=== PATIENT | female | born 1995 | race Caucasian/White ===

== ENCOUNTER 2017-09-12 12:50 | Day surgery (SDC) | payer OTHER ==
[2017-09-12 13:40] VITALS: BMI 30.9
[2017-09-12 13:41] VITALS: BP 112/68; TEMP 97.8
[2017-09-12] MEDS ORDERED: Ondansetron HCl/PF 4 MG/2 ML Vial IVP PRN (14:28)
[2017-09-12] MEDS ORDERED: Lactated Ringer's 1,000 ML IV SCH ×2 (14:30)
--- NOTE | 2017-09-12 14:32 | PDOC.LDHP ---
Labor and Delivery H&P Chief complaint: other (N/V) HPI: This 22 yo F at 32 wk per LMP comes in complaining of intractable nausea/ vomiting which started last night. She states her 2 children have been sick and she was cleaning up their vomit. She denies abdominal pain. States she cannot keep fluids down. Denies fevers, chill, or sweats. Has had diarrhea, denies blood. Denies contractions, some inna-conte, feels baby moving, no vaginal discharge or bleeding. She has not had any care due to reported insurance issues. She states that CPS is involved for "other issues" in her home. ROS General: no fever, chills, or sweats Neuro: mild headache, no LOC, no weakness HEENT: no change in vision, no hearing issues, no runny nose, no ear pain, No sore throat CV: no chest pain, No palpitations Respiratory: no Cough, no wheezing, no shortness of breath GI: see hpi : no Dysuria, no increased frequency, no hematuria Ms: mild myalgias, no arthralgias Skin: no Rashes, bruising, or petechiae Current gestational age (weeks): 32 Dating criteria: last menstrual period Grav: 3 Para: 2 OB History Details: No care. 1st child induced at 42 wks w/o complications. 2nd child 40 wks w/o complications. Current complications: other (no care) Past Medical History: Denies any medical conditions Current medications: pre- vitamins Previous surgical history: none Social history: other (denies tobacco or alcohol use. Admits to using marijuana early in the .) - Physical Exam Abnormal vital signs: tachycardic in 120s, will give fluids General: NAD Heart: RRR Lungs: CTAB Abdomen: gravid (no tenderness to palpation) Extremeties: no edema FHT: category 1 (no accels, baseline 150, no contractions, no decels, good variability) - OB Labs HIV: negative HEPSAg: negative - Assessment this is stable 22 yo F with likely gastroenteritis. We will send her home with Judy to get her through to her appointment with clinic on Saturday. She is tolerating PO intake at time of discharge. #Di/Di Twins - patient found to have di/di twins on US - twins are 28wks by US, they should be 32 weeks by LMP - due to no prior , it is unsure whether this is IUGR or inaccurate LMP -the twins are discordant by 10-15% - Initial OB labs were completed - Appointment made for 914 on Saturday morning at clinic - Plan -: #Di/di twins w/ no care -Completed initial OB labs -Complete OB US- showing di/di twins -see assessment/report for results #IUGR? -twins discordant size -they are 28 wks by US, 32 wks by LMP, no previous data -Needs complete US in 2 weeks to track growth -f/u on results of US doppler -Weekly BPP/Bi-weekly NSTs until more complete picture obtained -MFM consult # Nausea/vomiting 2L LR 4mg IV Zofran PO zofran for home <Peter Dhillon - Last Filed: 09/12/17 17:49> <Isauro Oh - Last Filed: 09/12/17 23:39> Allergies/Adverse Reactions: Allergies Allergy/AdvReac Type Severity Reaction Status Date / Time No Known Drug Allergies Allergy Verified 09/12/17 13:38 Attending Addendum - Attending Addendum Date/Time: 09/12/17 5576 I personally evaluated the patient and discussed the management with Dr. Dhillon I agree with the History, Examination, Assessment and Plan documented above with any addition or exceptions noted below. addendum. U/s Showed twin gestation, diamniotic girls 15% discordant and measuring 3-4wks smaller than due date by lmp. iugr? vs poor dating. will get dopplar studies before discharging home. Dopplars appropriate for gestational age. Pt to discharge home. Has appt with [facility] for next week. Plans in place for testing and repeat u.s for growth to verify apropriate growth velocity vs iugr. . 3 <Isauro Oh - Last Filed: 09/12/17 23:39>
[2017-09-12 15:05] LABS: #Lymphocytes 0.8 thou/uL (1.20-3.40); #Monocytes 0.3 thou/uL (0.11-0.59); #Neutrophils 12.6 thou/uL (1.40-6.50); %Eosinophils 0.1 % (0.0-10.0); %Lymphocytes 5.8 % (21.0-51.0); %Monocytes 2.2 % (0.0-10.0); %Neutrophils 91.8 % (42.0-75.0); Hemoglobin 12.1 g/dL (12.0-16.0); Mean Corpuscular HGB CONC 33.7 g/dL (32.0-36.0); Mean Corpuscular Hemoglobin 29.3 pg (27.0-31.0); Mean Corpuscular Volume 87.1 fl (81.0-99.0); Mean Platelet Volume 7.9 fL (7.4-10.4); Platelet Count 284 thou/uL (130-400); RBC Distribution Width 12.2 % (11.5-14.5); Red Blood Cell (RBC) Count 4.11 mill/uL (4.20-5.40); White Blood Cell (WBC) Count 13.7 thou/uL (4.8-10.8)
[2017-09-12 15:27] LABS: ALT (SGPT) 13 U/L (8-55); AST (SGOT) 16 U/L (5-34); Albumin 3.7 g/dL (3.5-5.0); Alkaline Phosphatase 216 U/L (40-150); Anion Gap 15 mmol/L (10-20); BUN (Urea Nitrogen) 10 mg/dL (7.0-18.7); Bilirubin, Total 0.4 mg/dL (0.2-1.2); Calc. Creatinine Clearance 170 mL/min (70-130); Calcium 8.8 mg/dL (7.8-10.44); Carbon Dioxide 20 mmol/L (22-29); Chloride 106 mmol/L (98-107); Estimated GFR-MDRD Greater than 90; Globulin 3.9 g/dL (2.4-3.5); Glucose 76 mg/dL (70-105); Potassium 3.9 mmol/L (3.5-5.1); Protein, Total 7.6 g/dL (6.0-8.3); Sodium 137 mmol/L (136-145)
[2017-09-12 15:56] LABS: Syphilis Antibody Nonreactive (Nonreactive); Syphilis Antibody Index 0.04 S/CO (<1.00 Non-Reactive)
[2017-09-12 16:05] LABS: HBSAg Index 0.18 S/CO (0-0.99); HIV (1/2) Antibody/Antigen Non-Reactive (NonReactive); HIV 1/2 INDEX 0.16 S/CO (<1.00); Hep B Surf Ag Non-Reactive S/CO (NonReactive)
[2017-09-12 16:31] LABS: Bilirubin Negative (Negative); Blood, Urine Negative (Negative); Clarity CLOUDY (Clear); Glucose, Urine (Dipstick) Negative (Negative); Leukocyte Small (Negative); Nitrite Negative (Negative); Protein, Urine (Dipstick) 100 mg/dL (Neg-Trace); Specific Gravity, Urine 1.022 (1.002-1.036); Urobilinogen 0.2 mg/dL (0.2-1.0)
[2017-09-12 16:34] LABS: Bacteria/HPF 3+ HPF (None Seen); Hyaline Casts/LPF 4-6 HYALINE CAST LPF (0-3 Hyaline); Pathc Cast-AUWi Flag 0.54 (0-2.49); RBC/HPF 0-3 HPF (0-3)
[2017-09-12 16:40] LABS: Amphetamine Not Detected (NotDetected); Barbiturates Screen Not Detected (NotDetected); Benzodiazepine Screen Not Detected (NotDetected); Cocaine Metabolite Screen Not Detected (NotDetected); Medtox Control Line Valid? VALID (VALID); Medtox Reader # READER 4; Methadone Not Detected (NotDetected); Methamphetamine Not Detected (NotDetected); Opiate Screen Not Detected (NotDetected); Oxycodone Screen Not Detected (NotDetected); Phencyclidine (PCP) Not Detected (NotDetected); THC/Cannabinoid Screen Not Detected (NotDetected); Tricyclic Screen Not Detected (NotDetected)
[2017-09-12 16:43] LABS: Renal Epithelial None Seen HPF (0-3); Transitional Epithelial 0-3 HPF (0-3)
--- NOTE | 2017-09-12 17:09 | ULT ---
OBSTETRICAL ULTRASOUND 09/12/17 INDICATION: History of no care; evaluation of size and dates. COMPARISON: None. FINDINGS: There is a twin twin diamniotic, dichorionic intrauterine gestation. Twin A is on the maternal left and is in vertex presentation. The placenta is anterior in location wi thout evidence of previa. The visualized cerebellum, four chamber heart, stomach, kidneys, cord insertion, bladder, lips and no se appear within normal limits. Three vessel cord was demonstrated. The spine, lateral ventricles, ci sterna magna were not well seen due to the twin twin as well as the advanced gestational ag e. weight was 1212 grams plus/minus 179 grams (2 lb. 11 oz, plus/minus 6 oz). The average gestational age based on the biometrics obtained was 28 weeks and 4 days with estim ated due date of 12/01/17. The clinical age was 32 weeks and 2 days with estimated due date of 11/05/17 . The MARINA for twin A was 12.2. heart rate was noted at 141 beats per minute. Fetus B is seen to the maternal right and is in breech presentation. The placenta is anterior in loca tion without evidence of previa. The cardiac activity is noted at 152 beats per minute. The weight based on biometrics is 1426 grams plus/minus 211 grams (3 lb. 2 oz plus/minus 7 oz.). The average gestational age based on biometrics is 29 weeks and 6 days with estimated d ue date of 11/22/17. Clinical age is 32 weeks and 2 days with estimated due date of 11/05/17. MARINA was 9.9 cm. The visualized heart, stomach, kidneys, cord insertion, nose and lips, three vessel cord, bladder, and diaphragm appear within normal limits. The heart was not well seen. IMPRESSION: 1. Diamniotic, dichorionic twin twin . Size and dates as above. 2. There are limitations in the survey due to advanced gestational age and the twin twin p regnancy. 3. There is limited visualization of the head and spine on twin B. There was limited visua lization of portions of the head and spine with twin A. Short term follow up in one to two week s for possible completion of the survey would be recommended. POS: [facility]
--- NOTE | 2017-09-12 19:40 | ULT ---
UMBILICAL ARTERIAL DOPPLER EXAM 09/12/17 COMPARISON: None. HISTORY: 22-year-old female with twin . Evaluate umbilical artery of twin A. TECHNIQUE: Multiplanar pemberton scale assessment of the umbilical artery obtained. Color flow and spectral analysis was performed as well. FINDINGS: The umbilical artery near the placenta demonstrates a peak systolic velocity of 78 cm/s and a systol ic/diastolic ratio of 2.8. The umbilical artery near the insertion demonstrates a peak systolic velocity of 75.2 cm/s and a systolic/diastolic ratio of 3.6. The mid portion of the umbilical artery demonstrates a peak systolic velocity of 48 cm/s and a systolic/diastolic ratio of 2.8. IMPRESSION: Systolic/diastolic ratio of the umbilical artery measures from 2.8 to 3.6 with peak systolic velocity ranging from 48 cm/s to 78 cm/s. At a reported gestational age of 28 weeks for twin A, systolic/diastolic ratio is between the 50th pe rcentile (3.0) and the 95th percentile (4.3). POS: MEET
--- NOTE | 2017-09-12 19:44 | ULT ---
UMBILICAL ARTERIAL DOPPLER ULTRASOUND 09/12/17 HISTORY: 22-year-old female with twin gestation. Assess umbilical artery doppler of fetus B. TECHNIQUE: Umbilical artery of twin B is assessed with color flow and spectral analysis. FINDINGS: The umbilical artery at the level of the placental insertion demonstrates a peak systolic velocity of 41 cm/s and a systolic/diastolic ratio of 2.3. At the insertion, umbilical arterial peak systo lic velocity is 113 cm/s and systolic/diastolic ratio is 3.1. Within the mid portion of the umbilical artery, peak systolic velocity is 89 cm/s and systolic/diastolic ratio is 2.9. IMPRESSION: Umbilical arterial doppler ultrasound as above, with peak systolic velocity ranging from 2.3 to 3.1. POS: MEET
[2017-09-12] MEDS ORDERED: Acetaminophen 500 MG TAB PO SCH (19:45)
--- NOTE | 2017-09-15 16:18 | PDOC.EVN ---
Event Note - Event Note Event Note: Reviewed results of urine culture. Called patient in macrobid per sensetivities. Patient understood and will pick them up today. no dysuria, so this may just be asymptomatic bactiuria, but that is treated in . Patient has new patient appointment for saturday morning at [facility].
[2017-09-17 21:10] LABS: Chlamydia by PCR Not Detected (NotDetected); GC by PCR Not Detected (NotDetected)
== END 2017-09-12 20:01 | disposition home or self-care (01) ==
LOC: L&D/OP 12:50
PROVIDERS: ATTEND Obstetrics & Gynecology
DX: O21.2 Late vomiting of pregnancy (principal); O30.042 Twin pregnancy, dichorionic/diamniotic, second trimester; Z3A.32 32 weeks gestation of pregnancy
CPT/HCPCS: 76810; 76815; 80053; 80306; 81003; 81015; 85025; 86762; 86780; 87077; 87086; 87186; 87340; 87389; 87491; 87591; 99285; A4353

== ENCOUNTER 2017-10-03 14:55 | Day surgery (SDC) | payer OTHER ==
[2017-10-03 15:57] VITALS: BMI 32.9
[2017-10-03] MEDS ORDERED: FLU VACC QS2017-18 36 mo. & older 0.5 ML SYRINGE IM ONE (17:00)
--- NOTE | 2017-10-03 17:18 | PRG ---
DATE OF SERVICE: 10/03/2017 LABOR AND DELIVERY PROGRESS NOTE HISTORY OF PRESENT ILLNESS: Chelsea Bonilla is a 22-year-old G3, P2 at 33 weeks and 3 days by a 29-week 6 day ultrasound with known dichorionic diamniotic twin gestation who presents from the Clinic for evaluation of mild range blood pressures. The patient was seen today in clinic with a blood pressure 147 /86. She was sent to Labor and Delivery for evaluation. The patient has a chronic history of migraines. She reports she did have a migraine yesterday that resolved. She denies any headaches today. She denies any right upper quadrant pain or increased swelling in her lower extremities, hands or face. The patient denies any history of preeclampsia. The patient reports good movement x2 and reports that she had a sonogram today at clinic noting cephalic presentation of both baby A and B. The patient is feeling movement, uncertain if she is having contractions. OBJECTIVE: VITAL SIGNS: Blood pressures are normotensive 110s/60s from multiple assessments. CARDIOVASCULAR: Regular rate. RESPIRATORY: Unlabored. ABDOMEN: Soft, gravid, nontender to palpation. EXTREMITIES: No edema. Negative Hom[place]'. FHTS: Baby A:140s, positive accelerations and no decelerations (category 1). Baby B is 130s, positive accelerations, no decelerations (category 1). Tocometer: only two contractions seen over the course of more than 30 minutes. ASSESSMENT: A 22-year-old G3, P2 at 33 weeks and 3 days with di-di twin gestation with reported mild range blood pressure in clinic with normotensive blood pressures on labor and delivery evaluation. PLAN: The patient's blood pressures have been normotensive. She denies any symptoms of preeclampsia. NST of both baby A and B are reassuring and reactive. Discharged home with followup at Clinic. Preeclampsia warning symptoms reviewed with the patient. Continue baby aspirin. MTDD
== END 2017-10-03 17:23 | disposition home or self-care (01) ==
LOC: L&D/OP 14:55
PROVIDERS: ATTEND Obstetrics & Gynecology
DX: O99.89 Other specified diseases and conditions complicating pregnancy, childbirth and the puerperium (principal); R03.0 Elevated blood-pressure reading, without diagnosis of hypertension; O99.353 Diseases of the nervous system complicating pregnancy, third trimester; G43.909 Migraine, unspecified, not intractable, without status migrainosus; O30.043 Twin pregnancy, dichorionic/diamniotic, third trimester; Z3A.33 33 weeks gestation of pregnancy; Z79.899 Other long term (current) drug therapy
CPT/HCPCS: 99282

== ENCOUNTER 2017-10-26 16:46 | Day surgery (SDC) | payer OTHER ==
[2017-10-26 17:31] VITALS: BMI 35.3
[2017-10-26 17:58] VITALS: BP 129/75; TEMP 97.9
[2017-10-26 18:03] LABS: Amnisure Test No Membranes Rupture (No Rupture)
[2017-10-26 18:04] LABS: Amnisure Internal Control QC ACCEPTABLE (ACCEPTABLE)
--- NOTE | 2017-10-26 18:25 | PDOC.LDHP ---
Labor and Delivery H&P Chief complaint: contractions, loss of fluid HPI: 22 y/o @ 36.4 WGA presents for increased frequency and intensity of ctx as well as concern for leaking of fluid. She reports that she was having a strong ctx and felt some leaking fluid. She reports good movement and denies vaginal bleeding or discharge. Current gestational age (weeks): 36 (4 days) Due date: 11/19/17 Grav: 3 Para: 2 OB History Details: Has had two at term with no complications. Current complications: di/di twins, other (Glucose intolerance, Anemia of ) Abnormal US findings: Yes (discordant growth ) Past Medical History: None Current medications: pre- vitamins, iron, other (aspirin) Previous surgical history: cholecystectomy, other (Elmer in R leg) Social history: none - Physical Exam Vital signs reviewed and normal: yes General: NAD Heart: RRR Lungs: CTAB Abdomen: gravid Extremeties: no edema FHT: category 1, variable decelerations [place] contractions every: 5 minutes - Vaginal Exam cm dilated: 4 Effacement: 75% Station: -2 - OB Labs Blood type: O RH: positive Antibody Screen: negative HIV: negative RPR: negative 1 hour GCT: positive 3 hour GTT: negative GBS: positive Rubella: immune - Assessment Late Pre-term Labor rule-out - Plan -: 1. Late Pre-Term R/O labor -Amnisure -Cervical check in 2 hours -Monitor with external monitors 2. Di/Di twins Discordant growth -Monitor 3. Anemia of 4. GBS positive -If in labor, then will start penicillin <Kristel Pinedo - Last Filed: 10/26/17 18:23> <Nicolás Balbuena - Last Filed: 10/27/17 09:08> Allergies/Adverse Reactions: Allergies Allergy/AdvReac Type Severity Reaction Status Date / Time No Known Drug Allergies Allergy Verified 09/12/17 13:38 Attending Addendum - Attending Addendum Date/Time: 10/27/17 0901 I personally evaluated the patient and discussed the management with Dr. Pinedo and Levi. I agree with and repeated the History, Examination, Assessment and Plan documented above with any addition or exceptions noted below. @ 36w4d by suboptimal dating followed by MFM for di/di twins with isolated growth restriction of twin A (9% last sono on 10/15) and 18% discordance with normal dopplers. She recently saw [facility] and, per her, they recommended induction at 37w0d. She comes in because of leaking. Intermittent contractions, nothing regular or painful. +FM. No bleeding or preE symptoms. FHT: Cat 1, mod richard, + accels, - decels x 2 [place]: initially ctx q5m, spaced out after 2 hours SVE: 4.5/50/-3 x 2 exams, bulging bag Sono: vertex/vertex twins, DVP 5.59 and 5.2 cm A/B respectively Amnisure negative A/P: Negative ROM contractions Advanced cervical dilation with no cervical change after 2 hours 1. Discussed with patient, she would like to go home. 2. Discharge with strict return to OBT precautions 3. Discussed delivery plan in detail 4. Scheduled induction morning 10/29, will confirm after getting records on Saturday from [facility] Discussed in detail with Dr. Carlin, who is proctoring and following this patient. <Nicolás Balbuena - Last Filed: 10/27/17 09:08>
== END 2017-10-26 19:45 | disposition home or self-care (01) ==
LOC: L&D/OP 16:46
PROVIDERS: ATTEND Emergency Medicine
DX: O47.03 False labor before 37 completed weeks of gestation, third trimester (principal); O30.043 Twin pregnancy, dichorionic/diamniotic, third trimester; O99.013 Anemia complicating pregnancy, third trimester; D64.9 Anemia, unspecified; O36.5930 Maternal care for other known or suspected poor fetal growth, third trimester, not applicable or unspecified; O99.820 Streptococcus B carrier state complicating pregnancy; Z3A.36 36 weeks gestation of pregnancy; Z79.82 Long term (current) use of aspirin; Z79.899 Other long term (current) drug therapy; Z98.890 Other specified postprocedural states
CPT/HCPCS: 84112

== ENCOUNTER 2017-10-29 05:30 | Inpatient (IN) | payer OTHER ==
[2017-10-29] MEDS: Lactated Ringer's 1,000 ML IV SCH ×3 (07:15→20:35)
[2017-10-29 07:36] VITALS: BMI 35.3
--- NOTE | 2017-10-29 07:53 | PDOC.LDHP ---
Addendum entered and electronically signed by Dontae Price MD 10/29/17 08: 51: Upper level addendum Discussed at length the risks and benefits of C section vs trial of labor. Gabriela twins with confirmed cephalic cephalic presentation today. Induction today at term because of poor growth of baby A. [facility] recommended induction today , but I do not have the US report available to know if baby A meets criteria for IUGR or is just smaller than Baby B. Discussed the risk of need for emergent C section if one or the other fetus' do not tolerate labor, if position change makes vaginal delivery too high risk or if there is placental abnormalities. She would like to proceed with trial of labor and attempted vaginal delivery. We will plan to do delivery under US guidance, in the operating room with patient ready for section if needed. We have placed type and cross match for this patient because of high risk and her anemia. Marianne Price Original Note: Labor and Delivery H&P Chief complaint: scheduled induction HPI: 22 yo @ 37.0 WGA presents for scheduled induction. Patient presented for care around 30 weeks gestation. She denies chest pain, sob, n/v/d, fevers, chills, or recent illness. She states she has not had any vaginal fluid leakage or bleeding. She does note infrequent, weak contractions. She has no other complaints this morning. Current gestational age (weeks): 37 Due date: 11/19/17 Current complications: di/di twins, other (glucose intolerance, anemia of ) Abnormal US findings: Yes (Discordant growth) Past Medical History: Anxiety and depression Current medications: pre-lacy vitamins, iron, other (Aspirin) Previous surgical history: cholecystectomy, none (Elmer placed in right leg after fracture) Social history: none - Physical Exam Vital signs reviewed and normal: yes General: NAD, resting, breathing through contractions Heart: RRR Lungs: CTAB Abdomen: gravid Extremeties: no edema FHT: category 1 (Baby B), category 2 (Baby A) - Vaginal Exam cm dilated: 4 (4.5) Effacement: 50% Station: -3 - OB Labs Blood type: O RH: positive Antibody Screen: negative HIV: negative RPR: negative HEPSAg: negative 1 hour GCT: positive 3 hour GTT: negative GBS: positive Urine drug screen: not done Rubella: immune - Assessment L&D Assessment: medically indicated induction 1. Term Intrauterine - Scheduled Pitocin induction - External monitors - Cervical checks q2h 2. Di/Di twins - Discordant growth - Monitoring 3. Anemia of - CBC ordered 4. GBS positive - Will initiate Prophylaxis Disposition: Stable, will admit to L&D. - Plan Plan: admit to L&D, labor augmentation if indicated, GBS antibiotic prophylaxis <Bashir Barker - Last Filed: 10/29/17 08:43> <Rakesh Carlin - Last Filed: 10/29/17 11:11> Allergies/Adverse Reactions: Allergies Allergy/AdvReac Type Severity Reaction Status Date / Time No Known Drug Allergies Allergy Verified 09/12/17 13:38 Attending Addendum - Attending Addendum Date/Time: 10/29/17 1107 I personally evaluated the patient and discussed the management with Dr. Price. I agree with the History, Examination, Assessment and Plan documented above with any addition or exceptions noted below. 22 y.o. at 37.0 weeks with DI/DI twin gestation Vertex/Vertex with 18% discordance A<B for vaginal twin delivery, necessary vertex/vertex delivery for aftercoming head entrapment risk for baby B with Breech extraction. <Rakesh Carlin - Last Filed: 10/29/17 11:11>
[2017-10-29] MEDS ORDERED: Acetaminophen 500 MG TAB PO PRN (08:09)
[2017-10-29] MEDS ORDERED: LR / Pitocin 40 units/1000 ml 1,000 ML IV PRN (08:09)
[2017-10-29] MEDS ORDERED: Ondansetron HCl/PF 4 MG/2 ML Vial IVP PRN ×2 (08:09→09:34)
[2017-10-29] MEDS ORDERED: Promethazine HCl 25 MG/ML VIAL IM PRN ×2 (08:09→09:34)
[2017-10-29] MEDS ORDERED: Lidocaine 1% (PF) 30 ML VIAL SC PRN (08:09)
[2017-10-29] MEDS ORDERED: Penicillin G Potassium 5 MILL.UNITS in Sodium Chloride 0.9% 100 ML IVPB SCH (08:15)
[2017-10-29 08:18] LABS: Hemoglobin 9.6 g/dL (12.0-16.0); Mean Corpuscular Hemoglobin 26.4 pg (27.0-31.0); Mean Corpuscular Volume 77.7 fl (81.0-99.0); Mean Platelet Volume 9.3 fL (7.4-10.4); Platelet Count 207 thou/uL (130-400); Red Blood Cell (RBC) Count 3.62 mill/uL (4.20-5.40)
[2017-10-29] MEDS ORDERED: DISCONTINUE ALL PREVIOUS NARCOTICS FS SCH (08:45)
[2017-10-29 08:51] LABS: Syphilis Antibody Nonreactive (Nonreactive); Syphilis Antibody Index 0.03 S/CO (<1.00 Non-Reactive)
[2017-10-29] MEDS: LR 500 ML/Oxytocin 10 units 500 ML IV SCH ×2 (09:14→21:12)
[2017-10-29] MEDS ORDERED: Eucerin (Mineral Oil/Petrolatum,White) 30 gm Jar TOP PRN (09:34)
[2017-10-29] MEDS ORDERED: Acetaminophen 325 MG TAB PO PRN (09:34)
[2017-10-29] MEDS ORDERED: ePHEDrine/0.9% NaCl/PF SYRINGE 50 mg/10 ml SLOW IVP PRN (09:34)
[2017-10-29] MEDS ORDERED: Lactated Ringer's 500 ML IV PRN (09:34)
[2017-10-29] MEDS ORDERED: diphenhydrAMINE 50 MG/ML VIAL IVP PRN (09:34)
[2017-10-29] MEDS ORDERED: Naloxone HCl 0.4 mg/ml Vial IVP PRN ×2 (09:34)
[2017-10-29] MEDS: Bupivacaine 0.5% 20 ML, fentaNYL Citrate/PF 400 MCG in Sodium Chloride 0.9% 72 ML EPIDURAL SCH ×2 (09:40→17:42)
[2017-10-29] MEDS ORDERED: Communication Order-Pharmacy FS SCH (09:45)
[2017-10-29] MEDS ORDERED: Fentanyl 4mcg/Marcaine 0.1% Cassette 100 ML EPIDURAL SCH (09:45)
[2017-10-29] MEDS: Penicillin G 2.5 MILL.units 2.5 MILL.UNITS in Premix Bag 1 BAG IVPB SCH ×3 (12:09→21:17)
--- NOTE | 2017-10-29 12:32 | PDOC.LDPN ---
Labor & Delivery Progress Note - Subjective Subjective: comfortable - Objective Vital signs reviewed and normal: yes General: NAD, resting Uterine fundus: non tender Dilation: 5 Effacement: 50% Station: -2 FHT: category 1 (baby A, baby B. both have had short periods of tachycardia with good variabiltiy appx 15 minutes long each. predominantly category 1. ), variability present [place] contractions every: 4-5 minutes, captured intermittedly Other exam findings: both - Assessment (1) Twin Code(s): O30.009 - TWIN , UNSP NUM PLCNTA & AMNIO SACS, UNSP TRIMESTER Current Visit: No Status: Acute Qualifiers: Multiple gestation type: dichorionic and diamniotic Trimester: third trimester Qualified Code(s): O30.043 - Twin , dichorionic/diamniotic , third trimester Comment: 22 yo at 37.0 by LMP cw 29 week US. now in labor 2/2 to induction for A IUGR. patient is tolerating pitocin well. See H&P for discussion of risk discussion, which we have continued to have with patient. induciton of labor is going well at this time. will proceed with pitocin induciton. (2) Term Code(s): Z34.80 - ENCOUNTER FOR SUPRVSN OF NORMAL , UNSP TRIMESTER Current Visit: Yes Status: Acute (3) Anemia affecting Code(s): O99.019 - ANEMIA COMPLICATING , UNSPECIFIED TRIMESTER Current Visit: Yes Status: Acute Qualifiers: Trimester: third trimester Qualified Code(s): O99.013 - Anemia complicating , third trimester Comment: hgb 9.6. ordered 2 units crossmatch because high risk delivery (4) GBS (group B Streptococcus carrier), +RV culture, currently Code(s): O99.820 - STREPTOCOCCUS B CARRIER STATE COMPLICATING Current Visit: Yes Status: Acute Comment: getting 2nd dose now (5) IUGR (intrauterine growth restriction) Current Visit: Yes Status: Acute Comment: Baby A is at 5th percentile hadlock. Baby B 23%. Baby A had normal S/D ratio on ublicial doppler. proceed with induction Plan: pitocin for augmentation
--- NOTE | 2017-10-29 14:14 | PDOC.LDPN ---
Labor & Delivery Progress Note - Subjective Subjective: vaginal pressure - Objective Vital signs reviewed and normal: yes General: NAD Uterine fundus: palpable contractions Dilation: 5 Effacement: 75% Station: -2 FHT: category 1 [place] contractions every: 2-3 min Other exam findings: Ballotable vertex - Assessment (1) Twin Code(s): O30.009 - TWIN , UNSP NUM PLCNTA & AMNIO SACS, UNSP TRIMESTER Current Visit: Yes Status: Acute Qualifiers: Multiple gestation type: dichorionic and diamniotic Trimester: third trimester Qualified Code(s): O30.043 - Twin , dichorionic/diamniotic , third trimester Comment: 22 yo at 37.0 by LMP cw 29 week US. now in labor 2/2 to induction for A IUGR. patient is tolerating pitocin well. See H&P for discussion of risk discussion, which we have continued to have with patient. induciton of labor is going well at this time. Pit at 16 mu/min. Pt. tolerating well and more organized and evident contractions. (2) IUGR (intrauterine growth restriction) Current Visit: Yes Status: Acute Comment: Baby A is at 5th percentile hadlock. Baby B 23%. Baby A had normal S/D ratio on ublicial doppler. Induction in progress. Due to discordance and Baby B is the larger, will not pursue vaginal breech extraction of B but only vertex vaginal or if fails to present to pelvis as vertex to avoid entrapment of aftercoming head. (3) Term Code(s): Z34.80 - ENCOUNTER FOR SUPRVSN OF NORMAL , UNSP TRIMESTER Current Visit: Yes Status: Acute (4) GBS (group B Streptococcus carrier), +RV culture, currently Code(s): O99.820 - STREPTOCOCCUS B CARRIER STATE COMPLICATING Current Visit: Yes Status: Acute Comment: Received 2nd dose of PCN. (5) Anemia affecting Code(s): O99.019 - ANEMIA COMPLICATING , UNSPECIFIED TRIMESTER Current Visit: Yes Status: Acute Qualifiers: Trimester: third trimester Qualified Code(s): O99.013 - Anemia complicating , third trimester Comment: hgb 9.6. ordered 2 units crossmatch because high risk delivery (6) Poor patient attendance of care Code(s): O09.30 - SUPRVSN OF PREG W INSUFFICIENT ANTENAT CARE, UNSP TRIMESTER Current Visit: Yes Status: Acute Plan: continue plan of care
[2017-10-29 15:54] LABS: HBSAg Index 0.15 S/CO (0-0.99); Hep B Surf Ag Non-Reactive S/CO (NonReactive)
--- NOTE | 2017-10-29 16:26 | PDOC.LDPN ---
Labor & Delivery Progress Note - Subjective Subjective: comfortable, no concerns - Objective Vital signs reviewed and normal: yes General: NAD, resting, breathing through contractions, other (Epidural in place) Dilation: 8 Effacement: 90% Station: -2 FHT: category 1, variability present [place] contractions every: q3min - Assessment (1) Twin Code(s): O30.009 - TWIN , UNSP NUM PLCNTA & AMNIO SACS, UNSP TRIMESTER Current Visit: Yes Status: Acute Qualifiers: Multiple gestation type: dichorionic and diamniotic Trimester: third trimester Qualified Code(s): O30.043 - Twin , dichorionic/diamniotic , third trimester Comment: 22 yo at 37.0 by LMP cw 29 week US. now in labor 2/2 to induction for A IUGR. patient is tolerating pitocin well. Pit at 18 mu/ min. Pt and twins tolerating well and pain well controlled with epidural. (2) Anemia affecting Code(s): O99.019 - ANEMIA COMPLICATING , UNSPECIFIED TRIMESTER Current Visit: Yes Status: Acute Qualifiers: Trimester: third trimester Qualified Code(s): O99.013 - Anemia complicating , third trimester Comment: hgb 9.6. ordered 2 units crossmatch because high risk delivery (3) GBS (group B Streptococcus carrier), +RV culture, currently Code(s): O99.820 - STREPTOCOCCUS B CARRIER STATE COMPLICATING Current Visit: Yes Status: Acute Comment: Received 2nd dose of PCN. (4) IUGR (intrauterine growth restriction) Current Visit: Yes Status: Acute Comment: Baby A is at 5th percentile had[place]. Baby B 23%. Baby A had normal S/D ratio on ublicial doppler. Induction in progress. Due to discordance and Baby B is the larger, will not pursue vaginal breech extraction of B but only vertex vaginal or if fails to present to pelvis as vertex to avoid entrapment of aftercoming head. Plan: continue plan of care
--- NOTE | 2017-10-29 18:21 | PDOC.LDPN ---
Labor & Delivery Progress Note - Subjective Subjective: comfortable - Objective Vital signs reviewed and normal: yes General: NAD, resting Uterine fundus: non tender Dilation: 6 Effacement: 90% Station: -1 FHT: category 1 (category 1 for both infants) Other exam findings: bulging bag, head not ballotable. - Assessment (1) Twin Code(s): O30.009 - TWIN , UNSP NUM PLCNTA & AMNIO SACS, UNSP TRIMESTER Current Visit: Yes Status: Acute QualifierTitle: Multiple gestation type: dichorionic and diamniotic Trimester: third trimester Qualified Code(s): O30.043 - Twin , dichorionic/diamniotic, third trimester Comment: 22 yo at 37.0 by LMP cw 29 week US. now in labor 2/2 to induction for A IUGR. patient is tolerating pitocin well. Pit at 18 mu/ min. Pt and twins tolerating well and pain well controlled with epidural. Head is well engaged and we will likely perfom AROM soon. We will focus AROM and posterior left furthest away from baby B (2) Term Code(s): Z34.80 - ENCOUNTER FOR SUPRVSN OF NORMAL , UNSP TRIMESTER Current Visit: Yes Status: Acute (3) Anemia affecting Code(s): O99.019 - ANEMIA COMPLICATING , UNSPECIFIED TRIMESTER Current Visit: Yes Status: Acute QualifierTitle: Trimester: third trimester Qualified Code(s): O99.013 - Anemia complicating , third trimester Comment: hgb 9.6. ordered 2 units crossmatch because high risk delivery (4) GBS (group B Streptococcus carrier), +RV culture, currently Code(s): O99.820 - STREPTOCOCCUS B CARRIER STATE COMPLICATING Current Visit: Yes Status: Acute Comment: Received 2nd dose of PCN. (5) IUGR (intrauterine growth restriction) Current Visit: Yes Status: Acute Comment: Baby A is at 5th percentile hadlock. Baby B 23%. Baby A had normal S/D ratio on ublicial doppler. Induction in progress. Due to discordance and Baby B is the larger, will not pursue vaginal breech extraction of B but only vertex vaginal or if fails to present to pelvis as vertex to avoid entrapment of aftercoming head. Plan: continue plan of care, pitocin for augmentation <Price,Dontae - Last Filed: 10/29/17 18:20> Attending Addendum - Attending Addendum Date/Time: 10/29/171957 I personally evaluated the patient and discussed the management with Dr. Price. I agree with the History, Examination, Assessment and Plan documented above with any addition or exceptions noted below. Dr. Carlin present and proctoring. <Nicolás Balbuena - Last Filed: 10/29/17 19:58>
[2017-10-29] MEDS ORDERED: Calcium Carbonate 500 MG ChewTAB PO PRN (18:58)
[2017-10-29] MEDS ORDERED: CEFAZOLIN/Water 2 GM/20 ML SYRINGE SLOW IVP SCH (20:34)
--- NOTE | 2017-10-29 21:00 | PDOC.LDPN ---
Addendum entered and electronically signed by Dontae Price MD 10/29/17 21: 44: dilation: anterior lip. category 1 for both infants. Original Note: Labor & Delivery Progress Note - Subjective Subjective: comfortable, vaginal pressure - Objective Vital signs reviewed and normal: yes General: NAD, resting, breathing through contractions Uterine fundus: non tender Effacement: 100% Station: 0 FHT: category 1 [place] contractions every: 2-3 minutes AROM: clear fluid IUPC placed: yes FSE placed: yes - Assessment (1) Twin Code(s): O30.009 - TWIN , UNSP NUM PLCNTA & AMNIO SACS, UNSP TRIMESTER Current Visit: Yes Status: Acute QualifierTitle: Multiple gestation type: dichorionic and diamniotic Trimester: third trimester Qualified Code(s): O30.043 - Twin , dichorionic/diamniotic, third trimester Comment: 22 yo at 37.0 by LMP cw 29 week US. now in labor 2/2 to induction for A IUGR. patient is tolerating pitocin well. Pit at 18 mu/ min. Pt and twins tolerating well and pain well controlled with epidural, but has needed bolus x2. Baby A is well engaged, with anterior lip, likely still present because of OP presentation, likely it can be reduced. Will plan to try practice push and then transition back to OR. Will deliver in OR in case of need to transition quickly to section. (2) Term Code(s): Z34.80 - ENCOUNTER FOR SUPRVSN OF NORMAL , UNSP TRIMESTER Current Visit: Yes Status: Acute (3) Anemia affecting Code(s): O99.019 - ANEMIA COMPLICATING , UNSPECIFIED TRIMESTER Current Visit: Yes Status: Acute QualifierTitle: Trimester: third trimester Qualified Code(s): O99.013 - Anemia complicating , third trimester Comment: hgb 9.6. ordered 2 units crossmatch because high risk delivery (4) GBS (group B Streptococcus carrier), +RV culture, currently Code(s): O99.820 - STREPTOCOCCUS B CARRIER STATE COMPLICATING Current Visit: Yes Status: Acute Comment: Received 3 doses of penecillin (5) IUGR (intrauterine growth restriction) Current Visit: Yes Status: Acute Comment: Baby A is at 5th percentile hadlock. Baby B 23%. Baby A had normal S/D ratio on ublicial doppler. Induction in progress. Due to discordance and Baby B is the larger, will not pursue vaginal breech extraction of B but only vertex vaginal or if fails to present to pelvis as vertex to avoid entrapment of aftercoming head. Plan: continue plan of care <Dontae Price - Last Filed: 10/29/17 20:58> Attending Addendum - Attending Addendum Date/Time: 10/29/17 508 I personally evaluated the patient and discussed the management with Dr. Price. I agree with and repeated the History, Examination, Assessment and Plan documented above with any addition or exceptions noted below. Reassuring FHT x 2. Rare variables. Test push and transition to OR when available and ready. <Nicolás Balbuena - Last Filed: 10/29/17 21:51>
--- NOTE | 2017-10-29 22:25 | PDOC.LDPN ---
Labor & Delivery Progress Note - Objective General: NAD Dilation: 10 Effacement: 100% Station: 1+ FHT: category 2, variable decelerations (+accelerations), variability present [place] contractions every: q2-3m AROM: clear fluid FSE placed: yes Resuscitative measures: maternal IV fluids Plan: other (Plan on transferring to the OR for delivery. Per staff, with 2 recent deliveries and one case in the OR we have limited availability of nursing or anesthesia for this case. We proceed as soon as able. Request has been made for additional staff.)
[2017-10-29] MEDS ORDERED: Methylergonovine 0.2 MG/ML VIAL ONE (23:15)
[2017-10-29] MEDS: Methylergonovine 0.2 MG/ML VIAL IM SCH (23:17)
[2017-10-29] MEDS ORDERED: Misoprostol 200 MCG TAB ONE ×2 (23:23)
[2017-10-29 23:39] LABS: Actual Bicarbonate (HCO3a) 25.9 mEq/L (22-26); Base Excess (BEa) -1.4 mEq/L (0 (+/-) 2.5)
[2017-10-29 23:40] LABS: Actual Bicarbonate (HCO3a) 23.6 mEq/L (22-26); Base Excess (BEa) -4.5 mEq/L (0 (+/-) 2.5)
[2017-10-29 23:42] LABS: Actual Bicarbonate (HCO3v) 21 mEq/L (22-26); Base Excess -5.2 mEq/L (0 (+/- 2.5))
[2017-10-29 23:47] LABS: Actual Bicarbonate (HCO3v) 23 mEq/L (22-26); Base Excess -2.9 mEq/L (0 (+/- 2.5))
[2017-10-30] MEDS ORDERED: Misoprostol 200 MCG TAB PR SCH (00:30)
[2017-10-30] MEDS ORDERED: Ondansetron HCl/PF 4 MG/2 ML Vial IVP PRN (00:52)
[2017-10-30] MEDS ORDERED: Benzocaine/Menthol 20-0.5% 60 ML CAN TOP PRN (00:52)
[2017-10-30] MEDS ORDERED: diphenhydrAMINE 25 MG CAP PO PRN (00:52)
[2017-10-30] MEDS ORDERED: Milk Of Magnesia 30 ML UDCUP PO PRN (00:52)
[2017-10-30] MEDS ORDERED: LR / Pitocin 40 units/1000 ml 1,000 ML IV SCH (00:52)
[2017-10-30] MEDS ORDERED: Bisacodyl 10 MG SUPP PR PRN (00:52)
[2017-10-30] MEDS ORDERED: Preparation H Ointment 28 GM TUBE PR PRN (00:52)
[2017-10-30] MEDS ORDERED: Lanolin Ointment 7 GM TUBE TOP PRN (00:52)
[2017-10-30] MEDS ORDERED: Adacel (T-DAP) 0.5 ML VIAL IM ONE (00:52)
[2017-10-30] MEDS: Ibuprofen 800 MG TAB PO SCH ×3 (01:02→18:07)
[2017-10-30 06:10] LABS: Hemoglobin 8.4 g/dL (12.0-16.0); Mean Corpuscular HGB CONC 33.1 g/dL (32.0-36.0); Mean Corpuscular Hemoglobin 25.8 pg (27.0-31.0); Mean Corpuscular Volume 77.9 fl (81.0-99.0); Mean Platelet Volume 9.3 fL (7.4-10.4); Platelet Count 168 thou/uL (130-400); RBC Distribution Width 14.1 % (11.5-14.5); Red Blood Cell (RBC) Count 3.27 mill/uL (4.20-5.40); White Blood Cell (WBC) Count 17.2 thou/uL (4.8-10.8)
[2017-10-30] MEDS: HYDROcodone/Acetaminophen 5/325 mg Tablet PO PRN ×2 (06:23→15:07)
--- NOTE | 2017-10-30 07:22 | DN-2 ---
DATE OF DELIVERY: 10/29/2017 DELIVERING PHYSICIAN: Dr. Raul Price ATTENDING: Dr. Nicolás Balbuena PROCTORING ATTENDING: Dr. Rakesh Carlin PROCEDURE: Spontaneous vaginal delivery of cephalic cephalic dichorionic diamniotic twins. PREPROCEDURAL DIAGNOSES: 1. Term of dichorionic diamniotic twins. 2. Cephalic cephalic position before delivery. 3. Anemia of . 4. Intrauterine growth retardation of twin A. 5. GBS positive. 6. Renal abnormalities seen in both twins. POST-PROCEDURE DIAGNOSES: 1. Twin dichorionic diamniotic term , delivered. 2. hemorrhage secondary to uterine tone. 3. Cephalic cephalic position before delivery. 4. Anemia of . 5. Intrauterine growth retardation of twin A. 6. GBS positive. 7. Renal abnormalities seen in both twins. PROCEDURE IN DETAIL: Chelsea Bonilla is a pleasant 22-year-old female, G3, P2- 0-0-2 at 37 and 0 based on 29 week ultrasound consistent with last menstrual period who received her care at the Clinic starting at 29 weeks. She was comanaged in care by the [facility] at the Clinic and with consultation with Maternal Medicine. They had been tracking growth discordance that was of baby A being smaller than baby B with 17% at delivery. Baby A met criteria for IUGR before delivery at 5 percentile. This was the reason for induction of labor at 37 weeks. Risks, benefits, and alternatives, specifically between trial of labor and scheduled section were discussed with the patient including normal surgical risk plus increased risk of internal hemorrhage, placenta abruption and significant increase of malposition of second fetus after delivery of baby A. After discussing the risks and benefits, the patient elected to proceed with trial of labor and trial of vaginal delivery. She had an uncomplicated induction that was started with Pitocin. monitors for both baby A or B had several short episodes of category 2 tracing with some tachycardia. These episodes would last for about 15 minutes, then they had 2-3 of these throughout the labor. The patient became complete with the head A well engaged. In the 30 minutes prior to delivery there was a category 2 heart tones for baby A, but with sustained variability, but variable decelerations. Mom was transitioned to the operating room where we had set up for a section if needed. At this point prophylactic penicillin had been given x3. Cefazolin was given at the time of pushing. The patient pushed for a short period and delivered baby A occiput posterior with loose cord x1. The baby was delivered through the cord and cord was easily reduced after delivery. Baby A had cord clamped and cut and was given quickly to awaiting nurse. A sample of cord from cord A was taken for blood gases. Using ultrasound guidance and selective pressure maneuver baby B was guided to the cephalic position. Cephalic position was confirmed through cervical exam. The cervix became more loose and specifically had significant anterior cervix between baby B and the vaginal canal. After 1 push it was found by ultrasound exam that baby B was deflexed with face presentation that was mentum, anterior. Dr. Balbuena successfully flexed the head through gentle pressure with a cervical hand. Upon removal of his hand the patient went back into deflexed position. Dr. Carlin then successfully reflexed the head, held the head in flexion during a push and the baby descended into the vaginal canal and was now in occiput posterior position. Upon next push, the anterior cervical lip was able to be reduced and the next push after that baby B was delivered. The baby was handed to awaiting nurse. Cord blood was collected, using suprapubic pressure and gentle traction. Both placentas were delivered. Baby A's placenta was delivered as Raul and baby B' s was in [place] position. Normal bimanual massage was applied, but more than typical blood loss was seen from the uterine cavity. Uterus did quickly become firm, but there was still continued blood loss. Methergine was given IM. Bimanual massage was continued. The cervix and vagina and perineum were carefully examined for lacerations and there found to be none. At this point, the uterine fundus was firm and bleeding had stopped. Cytotec 800 was placed per rectum. ESTIMATED BLOOD LOSS: 600 mL. MTDD
--- NOTE | 2017-10-30 08:44 | PDOC.PP ---
Post Progress Note Post Day #: 1 Subjective: Doing well. Pain is tolerable. No acute events overnight. Bleeding has been slowing down. She notes she is working on . No other complaints this morning. PO intake tolerated: yes Flatus: yes Ambulation: yes Vital Signs (12 hours) Temp Pulse Resp BP 10/30/17 07:15 98.4 F 76 18 122/86 10/30/17 04:30 98.1 F 77 18 134/81 10/30/17 03:30 98.2 F 71 18 141/90 H 10/30/17 02:30 98.1 F 64 18 135/90 10/30/17 01:50 98.2 F 61 18 142/72 H Weight Weight 87.543 kg - Physical Examination General: NAD Cardiovascular: no m/r/g, RRR Respiratory: clear to auscultation bilaterally Abdominal: + bowel sounds, lochia, no distention, appropriately TTP Extremities: negative homans (B) Skin: no rash Neurological: no gross focal deficits Psychiatric: A&Ox3, normal affect Result Diagrams: 10/30/17 05:37 Additional Labs: Post Labs Blood Type O POSITIVE 10/29/17 08:13 Hep Bs Antigen Non-Reactive S/CO (NonReactive) 10/29/17 08:13 (1) Anemia affecting Code(s): O99.019 - ANEMIA COMPLICATING , UNSPECIFIED TRIMESTER Status : Acute QualifierTitle: Trimester: third trimester Qualified Code(s): O99.013 - Anemia complicating , third trimester Comment: hgb 9.6. ordered 2 units crossmatch because high risk delivery (2) GBS (group B Streptococcus carrier), +RV culture, currently Code(s): O99.820 - STREPTOCOCCUS B CARRIER STATE COMPLICATING Status : Acute Comment: Received 3 doses of penecillin (3) Twin delivered Code(s): O30.009 - TWIN , UNSP NUM PLCNTA & AMNIO SACS, UNSP TRIMESTER Status: Acute - Assessment/Plan 1. Twin delivered - Successful vaginal delivery di/di twins - Continue routine care - H & H 8.4 & 25.5 - Vitals WNL 2. GBS - Adequately treated - monitor s/s of infection 3. Anemia in - will monitor H&H if symptomatic Disposition: Stable, will continue routine care. <Bashir Barker - Last Filed: 10/30/17 08:46> Weight Weight 87.543 kg Result Diagrams: 10/30/17 05:37 Additional Labs: Post Labs Blood Type O POSITIVE 10/29/17 08:13 Hep Bs Antigen Non-Reactive S/CO (NonReactive) 10/29/17 08:13 (1) Twin Code(s): O30.009 - TWIN , UNSP NUM PLCNTA & AMNIO SACS, UNSP TRIMESTER Status: Acute Qualifiers: Multiple gestation type: dichorionic and diamniotic Trimester: third trimester Qualified Code(s): O30.043 - Twin , dichorionic/diamniotic , third trimester Comment: 22 yo at 37.0 by LMP cw 29 week US delivered appx 32 hours ago. Patient is making routine recovery. She desires ESSURE procedure post . (2) IUGR (intrauterine growth restriction) Status: Acute Comment: Baby A is at 5th percentile hadlock. Baby B 23%. Baby A had normal S/D ratio on ublicial doppler. Induction in progress. Due to discordance and Baby B is the larger, will not pursue vaginal breech extraction of B but only vertex vaginal or if fails to present to pelvis as vertex to avoid entrapment of aftercoming head. (3) Term Code(s): Z34.80 - ENCOUNTER FOR SUPRVSN OF NORMAL , UNSP TRIMESTER Status: Acute (4) GBS (group B Streptococcus carrier), +RV culture, currently Code(s): O99.820 - STREPTOCOCCUS B CARRIER STATE COMPLICATING Status : Acute Comment: Adequately treated. (5) Anemia affecting Code(s): O99.019 - ANEMIA COMPLICATING , UNSPECIFIED TRIMESTER Status : Acute Qualifiers: Trimester: third trimester Qualified Code(s): O99.013 - Anemia complicating , third trimester Comment: FU hemoglobin 8.4 and vitals and symptoms WNL. Will need outpatient iron to build back RBCs. But concetration will improve as blood volume normalizes as well. (6) Poor patient attendance of care Code(s): O09.30 - SUPRVSN OF PREG W INSUFFICIENT ANTENAT CARE, UNSP TRIMESTER Status: Acute <Rakesh Carlin - Last Filed: 11/01/17 15:14> Attending Addendum - Attending Addendum Date/Time: 11/01/17 1513 I personally evaluated the patient and discussed the management with Dr. Barker. I agree with the History, Examination, Assessment and Plan documented above with any addition or exceptions noted below. Pain controlled. Lochia normal. Afeb. Fundus Firm. Continue routine PP care. Babies in NICU, likely will transition pt. to Bed & Breakfast or [facility]. <Rakesh Carlin - Last Filed: 11/01/17 15:14>
[2017-10-30] MEDS ORDERED: Bupivacaine/Epinephrine 0.25% 30 ML VIAL ONE (09:00)
[2017-10-30] MEDS: Ferrous Sulfate 325 MG TAB PO SCH ×2 (09:20→18:07)
[2017-10-30] MEDS: Docusate Calcium (SURFAK) 240 MG CAP PO SCH (09:20)
[2017-10-30] MEDS: Prenatal Vitamin 1 TAB PO SCH (09:20)
[2017-10-31] MEDS: Methylergonovine 0.2 MG/ML VIAL IM SCH (00:29)
[2017-10-31] MEDS: Docusate Calcium (SURFAK) 240 MG CAP PO SCH ×2 (00:44→09:21)
[2017-10-31] MEDS: Ibuprofen 800 MG TAB PO SCH ×2 (00:44→09:21)
[2017-10-31 08:01] VITALS: BP 123/64; TEMP 98
--- NOTE | 2017-10-31 09:20 | PDOC.PP ---
Post Progress Note Post Day #: 2 Subjective: Patient is doing well and has no complaints. she has tolerated walking in the halls, has voided without issue and has tolerated food. bleeding is less than a period. PO intake tolerated: yes Flatus: yes Ambulation: yes Vital Signs (12 hours) Temp Pulse Resp BP 10/31/17 07:59 98 F 74 16 123/64 10/31/17 07:52 97.8 F 77 18 Weight Weight 87.543 kg - Physical Examination General: NAD Cardiovascular: no m/r/g, RRR Respiratory: clear to auscultation bilaterally, non-labored breathing Abdominal: + bowel sounds, lochia, no distention, appropriately TTP Fundus firm & at: umbilicus Extremities: negative homans (B) Neurological: no gross focal deficits Psychiatric: A&Ox3, normal affect Result Diagrams: 10/30/17 05:37 Additional Labs: Post Labs Blood Type O POSITIVE 10/29/17 08:13 Hep Bs Antigen Non-Reactive S/CO (NonReactive) 10/29/17 08:13 (1) Twin Code(s): O30.009 - TWIN , UNSP NUM PLCNTA & AMNIO SACS, UNSP TRIMESTER Status: Acute Qualifiers: Multiple gestation type: dichorionic and diamniotic Trimester: third trimester Qualified Code(s): O30.043 - Twin , dichorionic/diamniotic , third trimester Comment: 22 yo at 37.0 by LMP cw 29 week US delivered appx 32 hours ago. Patient is making routine recovery. She desires ESSURE procedure post . (2) Anemia affecting Code(s): O99.019 - ANEMIA COMPLICATING , UNSPECIFIED TRIMESTER Status : Acute Qualifiers: Trimester: third trimester Qualified Code(s): O99.013 - Anemia complicating , third trimester Comment: FU hemoglobin 8.4 and vitals and symptoms WNL. Will need outpatient iron to build back RBCs. But concetration will improve as blood volume normalizes as well. (3) GBS (group B Streptococcus carrier), +RV culture, currently Code(s): O99.820 - STREPTOCOCCUS B CARRIER STATE COMPLICATING Status : Acute Comment: Adequately treated. - Assessment/Plan Likely discharge today with transition to boarding to be close to twins.
[2017-10-31] MEDS: Ferrous Sulfate 325 MG TAB PO SCH (09:21)
[2017-10-31] MEDS: Prenatal Vitamin 1 TAB PO SCH (09:21)
== END 2017-10-31 17:30 | disposition home or self-care (01) | DRG 765 ==
LOC: L&D 06:34 → 3SW 10-30 01:44
PROVIDERS: ADMIT Emergency Medicine; ATTEND Emergency Medicine
PROC: 10D00Z1 Extraction of Products of Conception, Low, Open Approach (ICD-10-PCS; principal; 2017-10-29)
PROC: 3E033VJ Introduction of Other Hormone into Peripheral Vein, Percutaneous Approach (ICD-10-PCS; 2017-10-29)
DX: O36.5931 Maternal care for other known or suspected poor fetal growth, third trimester, fetus 1 (principal); O30.043 Twin pregnancy, dichorionic/diamniotic, third trimester; Z37.2 Twins, both liveborn; O99.824 Streptococcus B carrier state complicating childbirth; Z3A.37 37 weeks gestation of pregnancy; O99.344 Other mental disorders complicating childbirth; F41.8 Other specified anxiety disorders; O99.02 Anemia complicating childbirth; O32.1XX2 Maternal care for breech presentation, fetus 2
CPT/HCPCS: 36415; 51702; 82805; 85027; 86780; 86850; 86900; 86901; 87340; 88307; J2210; J2540; J3010; J3490; J7050; J7120

== ENCOUNTER 2019-03-07 18:36 | Day surgery (SDC) | payer OTHER ==
[2019-03-07 19:46] VITALS: BMI 35.4
[2019-03-07 20:02] VITALS: BP 111/66; TEMP 98.3
[2019-03-07 21:08] LABS: Amnisure Test No Membranes Rupture (No Rupture)
[2019-03-07 21:09] LABS: Amnisure Internal Control QC ACCEPTABLE (ACCEPTABLE)
[2019-03-07] MEDS ORDERED: hydrALAZINE 20 MG/ML VIAL SLOW IVP PRN (22:14)
--- NOTE | 2019-03-07 23:04 | PDOC.FPROB ---
FMR OB H&P: HPI - History of Present Illness Chief Complaint: contractions Indentification: 23yo @ 37.4wks by 10.3wk sono History of Present Illness: Patient reports that contractions began this afternoon around 3-4pm, approx 15min apart at a pain scale of 2/10. She states that she was taking a shower this evening and she felt fluid but is unsure if the fluid was urine or amniotic fluid. Denies vaginal bleeding or feeling that her panties are wet. Reports that she can feel baby move. Denies cp, sob, vision changes, abdominal pain. Has been having nausea and diarrhea for the past few days. She states she has a mild tension headache across her forehead. Primary Care Physician: Dr. Nicolás Balbuena @ [facility] FMR OB H&P: Current - Care : 4 Para: 4 Gestational age: 37.4 Due date: 03/24/2019 Dating Criteria: 10.3wk sono Course/Complications: GDM, A1 GBS + - OB Labs Blood type: O RH: positive Antibody Screen: negative HIV: negative RPR: negative HepBsAg: negative Rubella: immune Gonorrhea: negative Chlamydia: negative Pap Smear: NILM 11/07 1 hour gtt: abnormal A1c: 5.0 09/09 GBS: positive - Anatomy Survey Anatomy survey: Mild right pyelectasis with limited cardiac eval FMR OB H&P: History - Past Medical History PMH: Depression - OB History OB History: 2013-TSVD 2016-TSVD 2018-Twin vaginal delivery at 37 weeks, spent 2-3 weeks in NICU - 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 RAISER History: last pap 11/07, NILM - Surgical History Sx History: cholecystectomy, steel aminah in R femur - Social History Social History: Lives at home with and 5 children Non-smoking, no drug/etoh use - Family History Family History: No hx of genetic abnormalities DM in family FMR OB H&P: Medications - Current Home Medications: Medication Instructions Recorded Confirmed Type Vit,Calc76/Iron/Folic 1 tablet PO DAILY 09/12/17 03/07/19 History [Prenatabs Rx Tablet] Ranitidine HCl [Zantac] 150 mg PO DAILY 03/07/19 03/07/19 History Sertraline HCl [Zoloft] 50 mg PO DAILY 03/07/19 03/07/19 History Allergies/Adverse Reactions: Allergies Allergy/AdvReac Type Severity Reaction Status Date / Time No Known Drug Allergies Allergy Verified 03/07/19 19:41 FMR OB H&P: ROS - Review of Systems General: denies: fever/chills, night sweats Eyes: denies: eye pain, vision changes ENT: denies: nasal congestion, rhinorrhea Cardiovascular: denies: chest pain, palpitation Respiratory: denies: cough, shortness of breath Gastrointestinal: reports: nausea, diarrhea. denies: vomiting Genitourinary (Female): reports: contractions (every 20-30 min, -10/29). denies : vaginal bleeding Musculoskeletal: denies: decrease range of motion, arthritis/arthralgias Neurologic: denies: syncope, seizures Integumentary: denies: itching, rash Breast: denies: lumps, bumps Hematologic/Lymphatic: denies: prolonged or excessive bleeding Psychological: reports: depression. denies: hallucinations FMR OB H&P: Vital Signs - Maternal Vital signs: Vital Signs - First Documented Temp Pulse Resp BP Pulse Ox 98.3 F 106 H 18 111/66 96 03/07/19 19:40 03/07/19 19:40 03/07/19 19:40 03/07/19 19:40 03/07/19 19:40 - Heart Tones Baseline: 140 (reactive strip) Variability: moderate Acceleration: present Deceleration: absent [place] contractions every: 4-10 minutes, patient feels them every 20-30min FMR OB H&P: Physical Exam - Physical Exam General: NAD, awake, alert and oriented HEENT: normocephalic and atraumatic, no scleral icterus Neck: supple, FROM Chest: non-tender to palpation Heart: RRR, normal S1/S2, no edema General: CTAB, no respiratory distress, good air movement Abdomen: soft, gravid, bowel sound present Musculoskeletal: pulses present, FROM in all four extremities Neurological: sensation to pain,touch and proprioception grossly normal, no focal deficit Skin: good tugor, capillary refill <2 seconds Lymphatic: no unusual bruising or bleeding Psychiatric: intact recent and remote memory, good judgement and insight - Pelvic Exam Vulva: normal hair distribution Deviation from normal: white discharge Cervix: no masses SVE: 1/thick/high Presentation: cephalic FMR OB H&P: Results - Labs Lab results: Laboratory Results - last 24 hr 03/07/19 20:48 Amnio Swab Test No Membranes Rupture FMR OB H&P: A/P - Problem List (1) GBS (group B Streptococcus carrier), +RV culture, currently Current Visit: No Status: Acute Code(s): O99.820 - STREPTOCOCCUS B CARRIER STATE COMPLICATING Comment: Adequately treated. (2) Poor patient attendance of care Current Visit: No Status: Acute Code(s): O09.30 - SUPRVSN OF PREG W INSUFFICIENT ANTENAT CARE, UNSP TRIMESTER (3) Term Current Visit: No Status: Acute Code(s): Z34.80 - ENCOUNTER FOR SUPRVSN OF NORMAL , UNSP TRIMESTER Disposition: 23yo @ 37.4wks by 10.3wk sono presents with contractions and possible gush of fluid #Term -no vaginal bleeding, unsure fluid, feels baby moving - movement, cephalic presentation on bedside u/s -1/thick/high at 9pm and again at 1045pm -amnisure negative -sterile spec: no dionisio pooling appreciated, white vaginal discharge -vp3 sent, will f/u #poor attendance at appts -anatomy u/s showed right pyelectasis and limited cardiac exam -was recommended to see mfm but patient never went -encourage mfm appt #GBS Pos -Will provide prophylactic abx when in labor Dispo: likely d/c home with labor precautions Discussion: Date/Time: 03/07/19 2300 This H&P was discussed with [] and [] who agree with the above documentation and plan.
== END 2019-03-08 01:10 | disposition home or self-care (01) ==
LOC: L&D/OP 18:36
PROVIDERS: ATTEND Obstetrics & Gynecology
DX: O99.89 Other specified diseases and conditions complicating pregnancy, childbirth and the puerperium (principal); N89.8 Other specified noninflammatory disorders of vagina; O99.820 Streptococcus B carrier state complicating pregnancy; O09.33 Supervision of pregnancy with insufficient antenatal care, third trimester; O24.419 Gestational diabetes mellitus in pregnancy, unspecified control; O99.343 Other mental disorders complicating pregnancy, third trimester; F32.9 Major depressive disorder, single episode, unspecified; Z3A.37 37 weeks gestation of pregnancy; Z79.899 Other long term (current) drug therapy
CPT/HCPCS: 84112; 87480; 87510; 87660; 99285

== ENCOUNTER 2019-03-12 14:29 | Day surgery (SDC) | payer OTHER ==
[2019-03-12 14:59] VITALS: BMI 36.0
--- NOTE | 2019-03-12 15:49 | PDOC.FPROB ---
FMR OB H&P: HPI - History of Present Illness Chief Complaint: back ctx, loss of fluid Indentification: 23 yo at 38.2 wga by 10.3 sono History of Present Illness: Patient presents after having large amount of clear to yellow discharge this morning along with intermittent contractions which she felt in her back. She continued to have clear fluid leaking every time she urinated today, and she has felt pelvic pressure all day like she has to have a bowel movement. Otherwise, she denies vaginal bleeding and endorses movement. Has had no intercourse in past week. Of note, she woke up this AM with a headache and some nausea. She does have a history of migraines. Primary Care Physician: YENY Balbuena FMR OB H&P: Current - Care : 4 Para: 3004 Gestational age: 38.2 Due date: 03/24/2019 Dating Criteria: 10.3 sono Course/Complications: 1. Possible GDM, controlled w/ diet. Failed 1 hr GTT, never completed 3 hr. No Hx of GDM in other pregnancies. 2. GBS positive 3. Transiently elevated BPs 4. MDD: on sertraline 50 mg daily throughout 5. pyelectasis visualized on U/S - OB Labs Blood type: O RH: positive Antibody Screen: negative HIV: negative RPR: negative HepBsAg: negative Rubella: immune Gonorrhea: negative Chlamydia: negative Pap Smear: NILM 1 hour gtt: 170 3 hour GTT: not done A1c: 5.0 FMR OB H&P: History - Past Medical History PMH: - MDD - Migraines Denies asthma, HTN. - OB History OB History: 2013: 42 wks, eIOL, 7 lb 11 oz Female, vaginal 2016: 40 wks, , 7 lb 9 oz, Male, vaginal 2018: Twins, 37 wks, mIOL, 5 lb 9 oz, 6 lb 5 oz, females, vaginal Denies hx of GDM, preeclampsia, gHTN, or other complications. - INVASIVE CARDIOLOGIST History INVASIVE CARDIOLOGIST History: Pap: NILM No bag sorter surgeries. - Surgical History Sx History: ORIF of R femur for femur fracture Cholecystectomy - Social History Social History: Denies alcohol, tobacco, drug use. Lives w/ 4 biologic children & step son - Family History Family History: Denies defects/congenital diseases. Maternal Grandfather: DM, HTN FMR OB H&P: Medications - Current Home Medications: Medication Instructions Recorded Confirmed Type Vit,Calc76/Iron/Folic 1 tablet PO DAILY 09/12/17 03/12/19 History [Prenatabs Rx Tablet] Ranitidine HCl [Zantac] 150 mg PO DAILY 03/07/19 03/12/19 History Sertraline HCl [Zoloft] 50 mg PO DAILY 03/07/19 03/12/19 History Allergies/Adverse Reactions: Allergies Allergy/AdvReac Type Severity Reaction Status Date / Time No Known Drug Allergies Allergy Verified 03/12/19 14:56 FMR OB H&P: ROS - Review of Systems General: denies: fever/chills, weight/appetite/sleep changes, recent trauma Eyes: denies: vision changes ENT: denies: rhinorrhea, sore throat Cardiovascular: denies: chest pain, edema Respiratory: denies: cough, congestion, shortness of breath Gastrointestinal: reports: diarrhea, constipation. denies: abdominal pain, indigestion Genitourinary (Female): reports: vaginal discharge (see HPI), vaginal pressure. denies: incontinence, dysuria, hematuria Musculoskeletal: reports: pain (back pain) Neurologic: reports: headache. denies: seizures, weakness Integumentary: denies: itching, rash Hematologic/Lymphatic: denies: prolonged or excessive bleeding Psychological: reports: depression. denies: anxiety FMR OB H&P: Vital Signs - Maternal Vital signs: BP: 138/78 HR 97 - Heart Tones Baseline: 140 (reactive strip) Variability: moderate Acceleration: present Deceleration: absent [place] contractions every: unable to discern contractions on monitor FMR OB H&P: Physical Exam - Physical Exam General: NAD HEENT: normocephalic and atraumatic, MMM, no scleral icterus Neck: trachea midline Heart: RRR, normal S1/S2, no murmurs/rubs/gallops, pulses present (DP 2+ b/l), no edema General: CTAB, no respiratory distress Abdomen: soft, gravid, non-tender, bowel sound present, no hernias Musculoskeletal: pulses present Skin: no rash, good tugor Lymphatic: no unusual bruising or bleeding, no petechia Psychiatric: normal mood and affect - Pelvic Exam Vulva: normal hair distribution, no masses, no lesions Cervix: no masses, no lesions, no blood SVE: 3/50/-2 Goldsmith score: 7 FMR OB H&P: Results - Labs Lab results: Glucose: 83 Amnisure: negative VP3: pending FMR OB H&P: A/P Disposition: Monitor on OB triage. Discussion: Date/Time: 03/12/19 1546 23 yo F at 38.2 by 10.3 wk sono here for: R/o ROM, R/o labor: - Patient is a multip w/ history of twin vaginal delivery. We will monitor her for 2 hours and recheck her cervix to see if she is making change. - SVE 3/50/-2, soft and midposition. Goldsmith 7. - Amnisure: no ROM. - VP3: pending. - OB Ltd US: MARINA, cervical length, presentation - Recheck cervix at 1800 to assess for change High BP on initial read: - repeat q15 min while in triage. Consider Pre-E labs if next reads are repeatedly high. Possible GDM in : - glucose ordered and result was 83. Continue to monitor patient symptoms and redraw if symptomatic. May consider glucose checks during labor if patient should be admitted. pyelectasis: monitor. Other chronic conditions: MDD: stable. This H&P was discussed with Dr. Sparks and Dr. Maria, who agree with the above documentation and plan. Signature: Love Cardenas MD PGY1 Addendum - Attending - Attending Attestation Date/Time: 03/13/19 0838 I personally evaluated the patient and discussed the management with Dr. Cardenas I agree with the History, Examination, Assessment and Plan documented above with any addition or exceptions noted below. Exam repeated by myself. No pooling, negative valsalva. Ferning negative. Repeat BP was 115/68 No evidence of ROM or active labor. Pt stable for d/c to home with strict return precautions.
[2019-03-12 16:38] LABS: Amnisure Test No Membranes Rupture (No Rupture)
[2019-03-12 16:39] LABS: Amnisure Internal Control QC ACCEPTABLE (ACCEPTABLE)
--- NOTE | 2019-03-12 17:30 | ULT ---
Limited obstetrical ultrasound INDICATION: Evaluate MARINA, cervical length and presentation; premature rupture of membranes; "le aking fluid. " COMPARISON: None FINDINGS: The cervical length is 3.6 cm when labeled with a translabial approach. The MARINA is 16.5 cm. There is a single live intrauterine gestation in cephalic presentation. Cardiac activity is noted at 153 bpm. The placenta is posterior in location without evidence of previa. The biparietal diameter measures 9.52 cm giving an estimated gestational age of 38 weeks and 6 days ( 86th percentile). Head circumference measures 35.94 cm giving an estimated gestational age that is not estimated. (98th percentile). The abdominal circumference is 32.55 cm during an estimated gestational age of 36 weeks and 3 days (1 9th percentile). The femoral length is 7.09 cm giving an estimated gestational age of 36 weeks and 2 days (11th percen tile). Estimated weight is 3174 g (39th percentile) (7 lbs. 0 oz. +/- 17 ounces). Visualized heart appears within normal limits. Incidental note is made of bilateral pelviectasi s, right greater than left. The right pelvis measures 8.2 mm and the left measures 4.7 mm. The estimated gestational age by ultrasound is 37 weeks and 1 day with estimated due date of 2018. Clinical data is 38 weeks 2 days estimated due date 03/24/2019. IMPRESSION: 1. Single live intrauterine gestation with size and dates as above. There is discrepancy in the abdom inal circumference and femoral length when compared to the head measurements. 2. MARINA of 16.5 cm 3. Cervical length of 3.61 cm 4. Bilateral pelviectasis, right greater than left.
== END 2019-03-12 18:29 | disposition home or self-care (01) ==
LOC: L&D/OP 14:29
PROVIDERS: ATTEND Emergency Medicine
DX: O47.1 False labor at or after 37 completed weeks of gestation (principal); O99.89 Other specified diseases and conditions complicating pregnancy, childbirth and the puerperium; N89.8 Other specified noninflammatory disorders of vagina; R10.2 Pelvic and perineal pain; O99.343 Other mental disorders complicating pregnancy, third trimester; F32.9 Major depressive disorder, single episode, unspecified; Z79.899 Other long term (current) drug therapy; Z3A.38 38 weeks gestation of pregnancy
CPT/HCPCS: 36416; 76815; 84112; 87480; 87510; 87660; 99285

== ENCOUNTER 2019-03-18 08:56 | Day surgery (SDC) | payer OTHER ==
[2019-03-18 09:44] VITALS: BMI 35.8
[2019-03-18 09:45] VITALS: BP 121/74; TEMP 98.7
--- NOTE | 2019-03-18 10:59 | PDOC.FPROB ---
FMR OB H&P: HPI - History of Present Illness Chief Complaint: Contractions Indentification: @ 39.1 weeks History of Present Illness: Pt is a 23 yo @ 39.1 weeks dated by 10.3 week mary, GBS + who presents for contractions starting this today at 0730. She states the contractions are q10 mins and mild, tolerable in pain. She was in last week for similar reasoning with a check at /-2 but did not show progresion. She denies vaginal fluid or bleeding, fevers, chills. FMR OB H&P: History - Past Medical History PMH: none - OB History OB History: 2013 TSVD 2016 TSVD 2018 of twins @ 37 weeks - ANALYST BUSINESS ANALYSIS History ANALYST BUSINESS ANALYSIS History: none - Surgical History Sx History: ORIF Right Leg Cholecystectomy - Social History Social History: denies tobacco, alcohol, drugs - Family History Family History: maternal grandfather has diabetes and HTN FMR OB H&P: Medications - Current Home Medications: Medication Instructions Recorded Confirmed Type Vit,Calc76/Iron/Folic 1 tablet PO DAILY 09/12/17 03/18/19 History [Prenatabs Rx Tablet] Ranitidine HCl [Zantac] 150 mg PO DAILY 03/07/19 03/18/19 History Sertraline HCl [Zoloft] 50 mg PO DAILY 03/07/19 03/18/19 History Allergies/Adverse Reactions: Allergies Allergy/AdvReac Type Severity Reaction Status Date / Time No Known Drug Allergies Allergy Verified 03/12/19 14:56 FMR OB H&P: ROS - Review of Systems General: denies: fever/chills, weight/appetite/sleep changes Eyes: denies: vision changes, double vision ENT: denies: nasal congestion, rhinorrhea Cardiovascular: denies: chest pain, palpitation Respiratory: denies: cough, congestion, shortness of breath Gastrointestinal: reports: abdominal pain, cramping. denies: nausea, vomiting, diarrhea, constipation Genitourinary (Female): denies: incontinence, dysuria Musculoskeletal: denies: pain, stiffness Neurologic: denies: numbness, syncope, seizures Integumentary: denies: rash, lesions Hematologic/Lymphatic: denies: prolonged or excessive bleeding Psychological: denies: depression, anxiety FMR OB H&P: Vital Signs - Maternal Vital signs: Vital Signs - First Documented Temp Pulse Resp BP 98.7 F 107 H 18 121/74 03/18/19 09:14 03/18/19 09:14 03/18/19 09:14 03/18/19 09:14 - Heart Tones Variability: moderate Acceleration: absent Deceleration: absent FMR OB H&P: Physical Exam - Physical Exam General: NAD HEENT: PERRLA, EOMI Neck: FROM, trachea midline Chest: non-tender to palpation, no lesions Heart: RRR, normal S1/S2 General: CTAB, no respiratory distress, good air movement Abdomen: soft, gravid, non-tender, bowel sound present Musculoskeletal: normal gait and station, pulses present Neurological: sensation to pain,touch and proprioception grossly normal, no focal deficit Skin: no rash, capillary refill <2 seconds Lymphatic: no purpura, no petechia FMR OB H&P: A/P - Problem List (1) Term Status: Acute Code(s): Z34.80 - ENCOUNTER FOR SUPRVSN OF NORMAL , UNSP TRIMESTER (2) Uterine contractions during Status: Acute Code(s): O62.2 - OTHER UTERINE INERTIA Disposition: # Term , Latent Labor, @ 39.1 weeks # Contractions Pt experienced contractions starting this morning every 10 mins, weak in pressure. BP's stable. She was seen one week ago for previous symptoms and found to be 4, 50, -2. She underwent 3 checks in 3 hours without change. Amnisure was negative. Discharged home with instructions to return if contractions become painful/increased pressure, frequency is q3-5 min, passing blood vaginally, ROM. # GBS Positive - needs treatment during labor Discussion: Date/Time: 03/18/19 1055 This H&P was discussed with [] and [] who agree with the above documentation and plan.
[2019-03-18] MEDS ORDERED: hydrALAZINE 20 MG/ML VIAL SLOW IVP PRN (11:06)
[2019-03-18 12:09] LABS: Amnisure Internal Control QC ACCEPTABLE (ACCEPTABLE); Amnisure Test No Membranes Rupture (No Rupture)
== END 2019-03-18 13:10 | disposition home health service (06) ==
LOC: L&D/OP 08:56
PROVIDERS: ATTEND Emergency Medicine
DX: O62.0 Primary inadequate contractions (principal); O99.820 Streptococcus B carrier state complicating pregnancy; Z3A.39 39 weeks gestation of pregnancy; Z79.899 Other long term (current) drug therapy
CPT/HCPCS: 84112; 99283

== ENCOUNTER 2019-03-21 05:27 | Inpatient (IN) | payer OTHER ==
[2019-03-21 06:13] VITALS: BMI 35.3
[2019-03-21] MEDS ORDERED: NS / Oxytocin 40 units/1000ml 1,000 ML IV PRN (06:34)
[2019-03-21] MEDS ORDERED: Ondansetron PF 4 MG/2 ML Vial IVP PRN ×3 (06:34→19:14)
[2019-03-21] MEDS ORDERED: hydrALAZINE 20 MG/ML VIAL SLOW IVP PRN ×2 (06:34→19:14)
[2019-03-21] MEDS ORDERED: Acetaminophen 500 MG TAB PO PRN (06:34)
[2019-03-21] MEDS ORDERED: Promethazine HCl 25 MG/ML VIAL IM PRN ×2 (06:34→11:12)
[2019-03-21] MEDS ORDERED: Lidocaine 1% (PF) 30 ML VIAL SC PRN (06:34)
[2019-03-21] MEDS ORDERED: Butorphanol Tartrate 1 MG/ML VIAL SLOW IVP PRN (06:34)
[2019-03-21] MEDS ORDERED: NS w/ Oxytocin 10 units 500 ML IV SCH (06:45)
[2019-03-21] MEDS ORDERED: Penicillin G Potassium 5 MILL.UNITS in Sodium Chloride 0.9% 100 ML IVPB SCH (06:45)
[2019-03-21 06:59] LABS: Hemoglobin 11.6 g/dL (12.0-16.0); Mean Corpuscular HGB CONC 33.3 g/dL (32.0-36.0); Mean Corpuscular Volume 87.2 fL (78.0-98.0); Mean Platelet Volume 8.7 fL (7.4-10.4); Platelet Count 222 thou/uL (130-400); RBC Distribution Width 13.1 % (11.5-14.5); Red Blood Cell (RBC) Count 3.99 mill/uL (4.20-5.40); White Blood Cell (WBC) Count 8.9 thou/uL (4.8-10.8)
--- NOTE | 2019-03-21 07:21 | PDOC.FPROB ---
FMR OB H&P: HPI - History of Present Illness Chief Complaint: induction of labor History of Present Illness: 23 y/o , @ 39.4 wks presents for IOL. Pt is feelnig baby move frequently, denies LOF, or Vaginal Bleeding. States she is having a heavy creamy discharge. Ctx every 10 minutes apart. Pt was dilated to a 4 on Saturday, and 5 yesterday. Primary Care Physician: Sree SAINI FMR OB H&P: Current - Care : 4 Para: 3004 Gestational age: 39.4 Due date: 03/24/19 Dating Criteria: LMP confirmed by 10.3 wk sono - OB Labs Blood type: O RH: positive Antibody Screen: negative HIV: negative RPR: negative HepBsAg: negative Rubella: immune Gonorrhea: negative Chlamydia: negative Pap Smear: NILM 1 hour gtt: 170 3 hour GTT: 130, 107, 73 A1c: 5.0 GBS: positive H&H: 11.0/32.1 FMR OB H&P: History - Past Medical History PMH: none - OB History OB History: - HEAD OF MOBILE History HEAD OF MOBILE History: NILM pap - Surgical History Sx History: cholecystectomy 2013 Femur ORIF 2015 after traumatic injury - Social History Social History: denies etoh, drugs, tobacco use - Family History Family History: M grandfather: DM, Father of throat CA mother: migraines FMR OB H&P: Medications - Current Home Medications: Medication Instructions Recorded Confirmed Type Vit,Calc76/Iron/Folic 1 tablet PO DAILY 09/12/17 03/21/19 History [Prenatabs Rx Tablet] Ranitidine HCl [Zantac] 150 mg PO DAILY 03/07/19 03/21/19 History Sertraline HCl [Zoloft] 50 mg PO DAILY 03/07/19 03/21/19 History Allergies/Adverse Reactions: Allergies Allergy/AdvReac Type Severity Reaction Status Date / Time No Known Drug Allergies Allergy Verified 03/21/19 06:08 FMR OB H&P: ROS - Review of Systems General: denies: fever/chills, fatigue Eyes: denies: eye pain, vision changes ENT: denies: nasal congestion, sore throat Cardiovascular: denies: chest pain, palpitation, edema Respiratory: denies: cough, shortness of breath Gastrointestinal: reports: abdominal pain Genitourinary (Female): reports: vaginal discharge, contractions, vaginal pressure. denies: incontinence, dysuria, vaginal pain, vaginal bleeding Musculoskeletal: denies: pain Neurologic: reports: headache. denies: numbness, seizures, loss of counsciousness Integumentary: denies: itching, rash, lesions Hematologic/Lymphatic: denies: prolonged or excessive bleeding FMR OB H&P: Vital Signs - Maternal Vital signs: BP 124/79, 73 HR - Heart Tones Baseline: 125 Variability: moderate Acceleration: present Deceleration: absent Category: category 1 [place] contractions every: 10 min FMR OB H&P: Physical Exam - Physical Exam General: NAD, awake, alert and oriented HEENT: normocephalic and atraumatic, PERRLA, EOMI, MMM, conjunctiva clear, no scleral icterus, grossly normal vision, grossly normal hearing, oropharynx clear Neck: supple, FROM, trachea midline, no LAD Chest: non-tender to palpation Breast: symmetric, non-tender, no palpable masses, no skin changes, no erythema , no nipple discharge Heart: RRR, normal S1/S2, no murmurs/rubs/gallops, pulses present, no edema General: CTAB, no respiratory distress, good air movement, no rales/rhonchi, no wheezing, no retractions Abdomen: soft, gravid, non-tender, bowel sound present, no masses, no hernias Musculoskeletal: normal gait and station, pulses present, FROM in all four extremities, no misalignment/asymmetry, no atrophy Neurological: cranial nerves II through XII intact, sensation to pain,touch and proprioception grossly normal, DTR +2, no clonus, no tremor, no focal deficit Skin: no rash, good tugor, capillary refill <2 seconds, no jaundice Lymphatic: no unusual bruising or bleeding, no purpura, no petechia, no LAD Psychiatric: intact recent and remote memory, good judgement and insight, normal mood and affect FMR OB H&P: Results - Labs Lab results: Laboratory Results - last 24 hr 03/21/19 06:45 WBC 8.9 RBC 3.99 L Hgb 11.6 L Hct 34.8 L MCV 87.2 MCH 29.0 MCHC 33.3 RDW 13.1 Plt Count 222 MPV 8.7 FMR OB H&P: A/P - Problem List (1) Elective induction of labor planned Current Visit: Yes Status: Acute Code(s): [id number] - (2) GBS (group B Streptococcus carrier), +RV culture, currently Current Visit: No Status: Acute Code(s): O99.820 - STREPTOCOCCUS B CARRIER STATE COMPLICATING Comment: Adequately treated. (3) Term Current Visit: No Status: Acute Code(s): Z34.80 - ENCOUNTER FOR SUPRVSN OF NORMAL , UNSP TRIMESTER Disposition: Stable Admitting to L&D for IOL. Discussion: Date/Time: 03/21/19 0721 23 y/o @ 39.4 weeks gestation presenting to L&D for IOL. 1. Term IUP -@ 39.4 wks 2. IOL - Pt desires epidural placement - SVE Q4H, @ 0830 /-2 - Pit for augmentation 3. GBS positive - initiate penicillin antibiotic ppx - no allergies to antibiotics This H&P was discussed with Dr. Balbuena and Dr. Lock who agree with the above documentation and plan. Addendum - Attending - Attending Attestation Date/Time: 03/21/19 0843 I personally evaluated the patient and discussed the management with Dr. Gomez. I agree and repeated with the History, Examination, Assessment and Plan documented above with any addition or exceptions noted below. Patient well known to me. Begin PCN and pit subsequently. Will AROM when able.
[2019-03-21] MEDS: Lactated Ringer's 1,000 ML IV SCH ×2 (07:28→16:28)
[2019-03-21 07:38] LABS: Syphilis Antibody Nonreactive (Nonreactive); Syphilis Antibody Index 0.04 S/CO (<1.00 Non-Reactive)
[2019-03-21 07:39] LABS: HBSAg Index 0.21 S/CO (0-0.99); Hep B Surf Ag Non-Reactive S/CO (NonReactive)
[2019-03-21] MEDS ORDERED: Fentanyl 4 mcg/Bup 0.1% Cadd 100 ML ONE (10:37)
[2019-03-21] MEDS ORDERED: Lidocaine 1.5%/Epinephrine 1:200,000 5 ML AMPUL IJ ONE (10:38)
[2019-03-21] MEDS ORDERED: diphenhydrAMINE 50 MG/ML VIAL IVP PRN (11:12)
[2019-03-21] MEDS ORDERED: Naloxone HCl 0.4 mg/ml Vial IVP PRN ×2 (11:12)
[2019-03-21] MEDS ORDERED: Acetaminophen 325 MG TAB PO PRN (11:12)
[2019-03-21] MEDS ORDERED: Lactated Ringer's 500 ML IV PRN (11:12)
[2019-03-21] MEDS ORDERED: ePHEDrine/0.9% NaCl/PF SYRINGE 50 mg/10 ml SLOW IVP PRN (11:12)
[2019-03-21] MEDS ORDERED: Fentanyl 4 mcg/Bupivacaine 0.1% Cassette 100 ML EPIDURAL SCH (11:15)
[2019-03-21] MEDS ORDERED: Communication Order-Pharmacy FS SCH (11:15)
[2019-03-21] MEDS: Penicillin G 2.5 MILL.units 2.5 MILL.UNITS in Premix Bag 1 BAG IVPB SCH ×2 (11:26→20:26)
--- NOTE | 2019-03-21 12:12 | PDOC.LDPN ---
Labor & Delivery Progress Note - Subjective Subjective: comfortable - Objective Vital signs reviewed and normal: yes General: NAD, resting Uterine fundus: non tender Dilation: 5/50/-2 FHT: category 1 (mod richard, + accels, - decels) [place] contractions every: poor tracing, will readjust - Assessment (1) Elective induction of labor planned Code(s): [id number] - Current Visit: Yes Status: Acute (2) GBS (group B Streptococcus carrier), +RV culture, currently Code(s): O99.820 - STREPTOCOCCUS B CARRIER STATE COMPLICATING Current Visit: No Status: Acute Comment: Adequately treated. (3) Term Code(s): Z34.80 - ENCOUNTER FOR SUPRVSN OF NORMAL , UNSP TRIMESTER Current Visit: No Status: Acute Plan: continue plan of care (will recheck in 2 hours; anticipate )
--- NOTE | 2019-03-21 14:08 | PDOC.LDPN ---
Labor & Delivery Progress Note - Subjective Subjective: comfortable - Objective Vital signs reviewed and normal: yes General: NAD, resting SVE: 5/50/-2 FHT: category 1 (mod richard, + accels, - decels) [place] contractions every: q3-5m - Assessment (1) Elective induction of labor planned Code(s): [id number] - Current Visit: Yes Status: Acute (2) GBS (group B Streptococcus carrier), +RV culture, currently Code(s): O99.820 - STREPTOCOCCUS B CARRIER STATE COMPLICATING Current Visit: No Status: Acute Comment: Adequately treated. (3) Term Code(s): Z34.80 - ENCOUNTER FOR SUPRVSN OF NORMAL , UNSP TRIMESTER Current Visit: No Status: Acute Plan: continue plan of care (continue to titrate pit; recheck in 3-4 hours)
[2019-03-21 18:08] LABS: Glucose Accucheck Confirmation 88 mg/dl (70-105)
--- NOTE | 2019-03-21 18:35 | PDOC.OPDEL ---
OB Operative/Delivery Note Delivery Dr/Surgeon: Roula Balbuena Pre-Delivery Diagnosis: elective induction Procedure/Post Delivery Dx: spontaneous vaginal delivery Anesthesia: epidural - Additional Findings/Plan Placenta delivered: spontaneous Repaired Obstetrical Laceration: none Estimated blood loss: 450, qBL pending Compilations/Other Findings: None Post delivery plan: routine recovery Addendum - Attending - Attending Attestation Date/Time: 03/21/19 1831 I was present for the entire delivery. Viable male delivered MARTINEZ, atraumatically, over an intact perineum with nuchal cord x 1, which was easily reduced. My AG 03/30, formal pending. cried upon delivery and placed skin to skin. DCC performed. Cord cut and blood sampled. Placenta delivered with CCT, intact with 3vc. Fundus firmed with IV pitocin and manual massage. Perineum inspected and anterior cervix with small hemostatic abrasions. No perineal lacerations. QBL 673. Counts correct. Mom and baby to . GBS+, adequate ppx.
[2019-03-21] MEDS ORDERED: HYDROcodone/Acetaminophen 5/325 mg Tablet PO PRN (19:14)
[2019-03-21] MEDS ORDERED: Milk Of Magnesia 30 ML UDCUP PO PRN (19:14)
[2019-03-21] MEDS ORDERED: Bisacodyl 10 MG SUPP PR PRN (19:14)
[2019-03-21] MEDS ORDERED: Adacel (T-DAP) 0.5 ML SYRINGE IM ONE (19:14)
[2019-03-21] MEDS ORDERED: NS / Oxytocin 40 units/1000ml 1,000 ML IV SCH (19:14)
[2019-03-21] MEDS: Ibuprofen 800 MG TAB PO SCH (21:33)
[2019-03-21] MEDS: Docusate Calcium (SURFAK) 240 MG CAP PO SCH (21:34)
[2019-03-22] MEDS ORDERED: HYDROcodone/Acetaminophen 5/325 mg Tablet PO SCH (00:45)
[2019-03-22] MEDS: Ibuprofen 800 MG TAB PO SCH ×3 (05:25→21:47)
[2019-03-22 05:58] LABS: Hemoglobin 9.4 g/dL (12.0-16.0)
--- NOTE | 2019-03-22 09:29 | PDOC.PP ---
Post Progress Note Post Day #: 1 Subjective: delivered at 39.4 wks via @ 1817 on 03/22, GBS positive requiring abx during delivery who is doing well today. Nurses noted she passed clots this morning increasing post- bleeding to > 1100 mls. She does not have heavy, constant bleeding. She denies SOB, chest pain, tachycardia, lightheadedness. Feels fine with ambulation. PO intake tolerated: yes Flatus: yes Ambulation: yes Vital Signs (12 hours) Temp Pulse Resp BP 03/22/19 05:28 98.1 F 73 18 108/63 Weight Weight 87.543 kg - Physical Examination General: NAD Cardiovascular: no m/r/g, RRR Respiratory: clear to auscultation bilaterally, non-labored breathing Abdominal: + bowel sounds, no distention, appropriately TTP Psychiatric: A&Ox3, normal affect Result Diagrams: 03/22/19 05:49 Additional Labs: Post Labs Blood Type O POSITIVE 03/21/19 06:45 Hep Bs Antigen Non-Reactive S/CO (NonReactive) 03/21/19 06:45 (1) hemorrhage Code(s): O72.1 - OTHER IMMEDIATE HEMORRHAGE Status: Acute (2) Elective induction of labor planned Code(s): [id number] - Status: Acute (3) Anemia affecting Code(s): O99.019 - ANEMIA COMPLICATING , UNSPECIFIED TRIMESTER Status : Acute Qualifiers: Trimester: third trimester Qualified Code(s): O99.013 - Anemia complicating , third trimester Comment: FU hemoglobin 8.4 and vitals and symptoms WNL. Will need outpatient iron to build back RBCs. But concetration will improve as blood volume normalizes as well. (4) GBS (group B Streptococcus carrier), +RV culture, currently Code(s): O99.820 - STREPTOCOCCUS B CARRIER STATE COMPLICATING Status : Acute Comment: Adequately treated. (5) Term Code(s): Z34.80 - ENCOUNTER FOR SUPRVSN OF NORMAL , UNSP TRIMESTER Status: Acute (6) Normal vaginal delivery Code(s): O80 - ENCOUNTER FOR FULL-TERM UNCOMPLICATED DELIVERY Status: Acute - Assessment/Plan Post- Day # 1, 23 y/o delivered at @ 39.4 weeks gestation via w/o any complications today. 1. Term , Post- Day #1 - Motrin prn pain - pt eating well, urinating, tolerating ambulation 2. GBS positive - penicillin given during labor, no signs of infection this morning - no allergies to antibiotics 3. Hemorrhage QBL 1178 ml, Hgb 11.6 --> 9.4, asymptomatic - monitor - Cont ferrous sulfate This H&P was discussed with Dr. Balbuena and Dr. Lock who agree with the above documentation and plan. Addendum - Attending - Attending Attestation Date/Time: 03/22/19 5896 I personally evaluated the patient and discussed the management with the team. I agree with the History, Examination, Assessment and Plan documented above with any addition or exceptions noted below. Doing wonderfully this AM and says she has normal bleeding now and no pain. Please note she is a . I was not notified of PPH but she appears to be doing well.
[2019-03-22] MEDS: Ferrous Sulfate 325 MG TAB PO SCH ×2 (09:43→18:10)
[2019-03-22] MEDS: Prenatal Vitamin 1 TAB PO SCH (09:44)
[2019-03-22] MEDS: Docusate Calcium (SURFAK) 240 MG CAP PO SCH ×2 (09:44→21:47)
[2019-03-22] MEDS ORDERED: Witch Hazel-Glycerin 1 EACH JAR TOP PRN (20:41)
--- NOTE | 2019-03-23 06:13 | PDOC.PP ---
Post Progress Note Post Day #: 2 Subjective: Pt is doing well w/o any complaints. She states she has no fevers, abdominal pain. She had a BM yesterday, urinating well, tolerating PO intake. Bleeding has decreased in nature, remains asymptomatic w/o chest pain, SOB, tachycardia. PO intake tolerated: yes Flatus: yes Ambulation: yes Vital Signs (12 hours) Temp Pulse Resp BP Pulse Ox 03/23/19 02:22 97.7 F 73 18 119/81 03/22/19 22:15 98.0 F 83 18 125/77 03/22/19 20:00 98.3 F 78 20 149/79 H 97 03/22/19 18:15 98.0 F 78 18 119/68 Weight Weight 87.543 kg - Physical Examination General: NAD Cardiovascular: no m/r/g, RRR Respiratory: clear to auscultation bilaterally, non-labored breathing Abdominal: + bowel sounds, no distention, appropriately TTP Extremities: negative homans (B) Psychiatric: A&Ox3, normal affect Result Diagrams: 03/22/19 05:49 Additional Labs: Post Labs Blood Type O POSITIVE 03/21/19 06:45 Hep Bs Antigen Non-Reactive S/CO (NonReactive) 03/21/19 06:45 (1) hemorrhage Code(s): O72.1 - OTHER IMMEDIATE HEMORRHAGE Status: Acute (2) Elective induction of labor planned Code(s): ZGB5939 - Status: Acute (3) Anemia affecting Code(s): O99.019 - ANEMIA COMPLICATING , UNSPECIFIED TRIMESTER Status : Acute Qualifiers: Trimester: third trimester Qualified Code(s): O99.013 - Anemia complicating , third trimester Comment: FU hemoglobin 8.4 and vitals and symptoms WNL. Will need outpatient iron to build back RBCs. But concetration will improve as blood volume normalizes as well. (4) GBS (group B Streptococcus carrier), +RV culture, currently Code(s): O99.820 - STREPTOCOCCUS B CARRIER STATE COMPLICATING Status : Acute Comment: Adequately treated. (5) Term Code(s): Z34.80 - ENCOUNTER FOR SUPRVSN OF NORMAL , UNSP TRIMESTER Status: Acute (6) Normal vaginal delivery Code(s): O80 - ENCOUNTER FOR FULL-TERM UNCOMPLICATED DELIVERY Status: Acute - Assessment/Plan Post- Day # 2, 23 y/o delivered at @ 39.4 weeks gestation via w/o any complications today. 1. Term , Post- Day # 2 - Motrin prn pain - pt eating well, urinating, tolerating ambulation 2. GBS positive - penicillin given during labor, no signs of infection this morning - no allergies to antibiotics 3. Hemorrhage QBL 1178 ml, Hgb 11.6 --> 9.4, asymptomatic - monitor - Cont ferrous sulfate Fluids: none Diet: no restrictions Addendum - Attending - Attending Attestation Date/Time: 03/25/19 2904 I personally evaluated the patient and discussed the management with Dr. Manuel on date of service. I agree with the History, Examination, Assessment and Plan documented above with any addition or exceptions noted below.
[2019-03-23] MEDS: Ibuprofen 800 MG TAB PO SCH (06:26)
[2019-03-23 08:21] VITALS: BP 122/69; TEMP 98.2
[2019-03-23] MEDS: Docusate Calcium (SURFAK) 240 MG CAP PO SCH (09:50)
[2019-03-23] MEDS: Prenatal Vitamin 1 TAB PO SCH (09:50)
[2019-03-23] MEDS: Ferrous Sulfate 325 MG TAB PO SCH (09:50)
--- NOTE | 2019-03-25 07:09 | PQF ---
ASHWINI MARTIN BRANDON [id number] CLINICAL DOCUMENTATION CLARIFICATION FORM: POST DISCHARGE Addendum to original discharge summary date: ____ Late entry note date: __ DATE:03-25-2019 ATTN:Nicolás Ramon Please exercise your independent, professional judgment in responding to the clarification form. Clinical indicators are provided on the bottom of this form for your review Can you please specify the type of anemia based on the clinical indicators below. Please check appropriate box(s): [ x ] Acute blood loss anemia [ ] Post-op anemia related to acute blood loss [ ] Anemia Unspecified [ ] Other diagnosis please specify [ ] Unable to determine CLINICAL INDICATORS: -Labor and delivery 03/21 Dr. Balbuena - " EBL: 450qbl" - PN 03/22 Dr. Manuel - "increasing bleeding to > 1100mls " -Labs: RBC 03/21 3.99 -Labs: Hgb 03/21 11.6 03/22 9.4 RISK FACTORS: -H&P 03/21 - 23 years old female -H&P 03/21 - 39.4 weeks gestation -Labor and delivery 03/21 Dr. Balbuena - s/p - PN 03/22 Dr. Manuel - hemorrhage TREATMENTS: - PN 03/22 Dr. Manuel - Monitor H&H -SEP 26- IVF -SEP 27 - Ferrous Sulfate 325mg Oral (This form is maintained as a part of the permanent medical record) 2014 [employer]. All Rights Reserved Steph [email or web address] [not provided] MTDD
== END 2019-03-23 15:00 | disposition home or self-care (01) | DRG 806 ==
LOC: L&D 05:27 → 3SW 03-22 14:18
PROVIDERS: ADMIT Emergency Medicine; ATTEND Emergency Medicine
PROC: 10E0XZZ Delivery of Products of Conception, External Approach (ICD-10-PCS; principal; 2019-03-21)
PROC: 3E033VJ Introduction of Other Hormone into Peripheral Vein, Percutaneous Approach (ICD-10-PCS; 2019-03-21)
DX: O99.824 Streptococcus B carrier state complicating childbirth (principal); D62 Acute posthemorrhagic anemia; Z37.0 Single live birth; O69.81X0 Labor and delivery complicated by cord around neck, without compression, not applicable or unspecified; O72.1 Other immediate postpartum hemorrhage; Z3A.39 39 weeks gestation of pregnancy; O99.013 Anemia complicating pregnancy, third trimester; D64.9 Anemia, unspecified
CPT/HCPCS: 36415; 36416; 51702; 82947; 85014; 85018; 85027; 86780; 86850; 86900; 86901; 87340; 90715; J2001; J2540; J2590; J3490

== ENCOUNTER 2020-04-03 16:35 | Emergency (ER) | payer OTHER ==
[2020-04-03 17:19] LABS: #Lymphocytes 1.1 thou/uL (1.20-3.40); #Monocytes 0.5 thou/uL (0.11-0.59); #Neutrophils 10.1 thou/uL (1.40-6.50); %Basophils 0.1 % (0.0-1.0); %Eosinophils 0.2 % (0.0-10.0); %Lymphocytes 9.7 % (21.0-51.0); %Monocytes 3.9 % (0.0-10.0); %Neutrophils 86.1 % (42.0-75.0); Hemoglobin 13.4 g/dL (12.0-16.0); Mean Corpuscular HGB CONC 33.4 g/dL (32.0-36.0); Mean Corpuscular Hemoglobin 29.6 pg (27.0-31.0); Mean Corpuscular Volume 88.5 fL (78.0-98.0); Mean Platelet Volume 7.7 fL (7.4-10.4); Platelet Count 323 thou/uL (130-400); RBC Distribution Width 12.4 % (11.5-14.5); Red Blood Cell (RBC) Count 4.52 mill/uL (4.20-5.40); White Blood Cell (WBC) Count 11.7 thou/uL (4.8-10.8)
[2020-04-03 17:40] LABS: BHCG - Serum POSITIVE (NEGATIVE); Pregs Control Background? CLEAR/WHITE (CLR/WHITE); Pregs Control Bar Appear? YES (CONTROL BAR)
[2020-04-03 17:42] LABS: ALT (SGPT) 24 U/L (8-55); AST (SGOT) 22 U/L (5-34); Albumin 4.3 g/dL (3.5-5.0); Alkaline Phosphatase 76 U/L (40-110); Anion Gap 14 mmol/L (10-20); BUN (Urea Nitrogen) 8 mg/dL (7.0-18.7); Bilirubin, Total 0.3 mg/dL (0.2-1.2); Calc. Creatinine Clearance 0 mL/min (70-130); Calcium 8.7 mg/dL (7.8-10.44); Carbon Dioxide 21 mmol/L (22-29); Chloride 105 mmol/L (98-107); Estimated GFR-MDRD Greater than 90; Globulin 3.5 g/dL (2.4-3.5); Glucose 102 mg/dL (70-105); Lipase 21 U/L (8-78); Potassium 4.1 mmol/L (3.5-5.1); Protein, Total 7.8 g/dL (6.0-8.3); Sodium 136 mmol/L (136-145)
[2020-04-03 18:05] LABS: Bacteria/HPF None Seen HPF (None Seen); Bilirubin Negative (Negative); Blood, Urine Negative (Negative); Clarity Clear (Clear); Glucose, Urine (Dipstick) Normal (Negative); Ketone, Urine 80 mg/dL (Negative); Leukocyte Negative Leu/uL (Negative); Nitrite Negative (Negative); Protein, Urine (Dipstick) 50 mg/dL (Neg-Trace); Specific Gravity, Urine 1.041 (1.002-1.036); Urobilinogen Normal mg/dL (Less than 2); WBC/HPF 0-3 HPF (0-3); pH, Urine 6.5 (5.0-9.0)
[2020-04-03] MEDS ORDERED: Ondansetron PF 4 MG/2 ML Vial ONE ×2 (18:16→19:32)
[2020-04-03] MEDS ORDERED: Metoclopramide HCl 10 MG/2 ML VIAL ONE (18:36)
--- NOTE | 2020-04-03 20:33 | ULT ---
Exam: Transabdominal pelvic ultrasound HISTORY: Evaluate size and dates. Nausea and vomiting. COMPARISON: none TECHNIQUE: Transabdominal imaging of the pelvis is performed. Ovaries are interrogated with grayscale , color flow, Doppler imaging and spectral wave form analysis FINDINGS: Uterus is identified. No myometrial masses. Uterus measurements: 5.0 x 9.3 x 5.9 cm Endometrium: Within the endometrium is a gestational sac, yolk sac and pole. Emlyn-rump length is 0.63 cm corresponding to gestational age of 6 weeks 2 days. heart tones: 118 bpm Subchorionic hemorrhage: None Free fluid: None Ovaries: Normal echotexture. Right ovary measures 3.7 x 2.2 x 4.0 cm Left ovary measures 2.6 x 1.2 x 2.4 cm Ovarian Doppler: Flow to bilateral ovaries IMPRESSION: 1. Single intrauterine gestation with heart tones. Gestational age by crown-rump length is 6 we eks 2 days.
== END 2020-04-03 20:50 | disposition home or self-care (01) ==
LOC: ERS 16:35
DX: O21.9 Vomiting of pregnancy, unspecified (principal); O99.341 Other mental disorders complicating pregnancy, first trimester; F41.9 Anxiety disorder, unspecified; F32.9 Major depressive disorder, single episode, unspecified; Z3A.01 Less than 8 weeks gestation of pregnancy
CPT/HCPCS: 36415; 76856; 80053; 81003; 81015; 83690; 84702; 84703; 85025; 87086; 96361; 96374; 96375; J2405; J2765

== ENCOUNTER 2020-07-18 11:20 | Emergency (ER) | payer OTHER ==
[2020-07-19 02:09] LABS: SARS-CoV-2 MS2 Positive; SARS-CoV-2 N Gene Negative; SARS-CoV-2 S Gene Negative; SARS-CoV-2 by NAA Not Detected (NotDetected); SARS-CoV-2 orf1ab Negative
== END 2020-07-18 15:14 | disposition home or self-care (01) ==
LOC: ERS 11:20
DX: B34.9 Viral infection, unspecified (principal); Z20.828 Contact with and (suspected) exposure to other viral communicable diseases
CPT/HCPCS: 87635; 87804; 93005; U0003

== ENCOUNTER 2020-08-06 09:53 | Inpatient (IN) | payer MEDICAID ==
[2020-08-06 10:26] LABS: #Lymphocytes 0.7 thou/uL (1.20-3.40); #Monocytes 0.4 thou/uL (0.11-0.59); #Neutrophils 16.9 thou/uL (1.40-6.50); %Basophils 0.2 % (0.0-1.0); %Eosinophils 0.2 % (0.0-10.0); %Lymphocytes 4.1 % (21.0-51.0); %Monocytes 2.1 % (0.0-10.0); %Neutrophils 93.4 % (42.0-75.0); Hemoglobin 12.2 g/dL (12.0-16.0); Mean Corpuscular HGB CONC 34.4 g/dL (32.0-36.0); Mean Corpuscular Hemoglobin 30.9 pg (27.0-31.0); Mean Corpuscular Volume 89.9 fL (78.0-98.0); Mean Platelet Volume 7.7 fL (7.4-10.4); Platelet Count 291 thou/uL (130-400); RBC Distribution Width 12.2 % (11.5-14.5); Red Blood Cell (RBC) Count 3.93 mill/uL (4.20-5.40); White Blood Cell (WBC) Count 18.1 thou/uL (4.8-10.8)
[2020-08-06] MEDS ORDERED: Ondansetron PF 4 MG/2 ML Vial ONE ×2 (10:43→11:01)
[2020-08-06 10:46] LABS: Bacteria/HPF 4+ HPF (None Seen); Bilirubin Negative (Negative); Blood, Urine 1+ (Negative); Clarity Extra Turbid (Clear); Glucose, Urine (Dipstick) Normal (Negative); Ketone, Urine 10 mg/dL (Negative); Leukocyte 500 Leu/uL (Negative); Nitrite Negative (Negative); Protein, Urine (Dipstick) 70 mg/dL (Neg-Trace); Specific Gravity, Urine 1.016 (1.002-1.036); Squamous Epithelial 0-3 HPF (0-3); Transitional Epithelial 0-3 HPF (None Seen); WBC/HPF Greater than 50 HPF (0-3)
[2020-08-06 10:47] LABS: ALT (SGPT) 14 U/L (8-55); AST (SGOT) 12 U/L (5-34); Albumin 3.9 g/dL (3.5-5.0); Alkaline Phosphatase 129 U/L (40-110); Anion Gap 16 mmol/L (10-20); BUN (Urea Nitrogen) 7 mg/dL (7.0-18.7); Bilirubin, Total 0.5 mg/dL (0.2-1.2); Calc. Creatinine Clearance 0 mL/min (70-130); Calcium 8.6 mg/dL (7.8-10.44); Carbon Dioxide 21 mmol/L (22-29); Chloride 104 mmol/L (98-107); Globulin 3.6 g/dL (2.4-3.5); Glucose 83 mg/dL (70-105); Potassium 3.6 mmol/L (3.5-5.1); Protein, Total 7.5 g/dL (6.0-8.3); Sodium 137 mmol/L (136-145)
--- NOTE | 2020-08-06 11:15 | ULT ---
Bilateral renal ultrasound CLINICAL INDICATION: Right flank pain for 3 days in a patient with 24 week . COMPARISON: None. FINDINGS: Right kidney: Fullness in the region of the right renal pelvis without overt hydronephrosis. No renal mass or renal calculus is seen, and there is no perinephric fluid collection identified.The right kidney measures 12.5 cm x 5.2 cm. Left kidney: There is mild fullness of the left renal pelvis but to a lesser extent compared to the r ight. There is no hydronephrosis, renal calculus, or renal mass seen.The left kidney measures 12.8 cm x 5.7 cm. Urinary bladder: Within normal limits for degree of distention. Urinary bladder volume is 89 mL. [place] r flow evaluation demonstrates ureteral jets bilaterally. Incidental note is made of an intrauterine gestation incompletely imaged or evaluated. IMPRESSION: Fullness of the renal pelves bilaterally without hydronephrosis. The kidneys have a normal sonographi c appearance.
[2020-08-06] MEDS ORDERED: Acetaminophen 500 MG TAB ONE (11:25)
[2020-08-06] MEDS ORDERED: cefTRIAXone\\ROCEPHIN 1 GM VIAL ONE (11:25)
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
[2020-08-06] MEDS ORDERED: cefTRIAXone\\ROCEPHIN 2 GM VIAL ONE (11:38)
[2020-08-06 13:23] VITALS: BMI 34.7
[2020-08-06] MEDS ORDERED: Ondansetron PF 4 MG/2 ML Vial IVP PRN (13:30)
[2020-08-06] MEDS ORDERED: Ondansetron ODT 4 MG TAB PO PRN (13:30)
[2020-08-06] MEDS: Sodium Chloride 0.9% 1,000 ML IV SCH ×2 (14:21→17:49)
[2020-08-06] MEDS: Acetaminophen 325 MG TAB PO PRN ×2 (17:46→23:27)
--- NOTE | 2020-08-06 17:52 | ULT ---
OB ULTRASOUND: 08/06/20 HISTORY: Gestational age, anatomy. No care. FINDINGS: A single live intrauterine gestation is seen with measurements corresponding to an estimated gestatio nal age of 24 weeks, 1 day and ANGEL at 11/25/20. The estimated weight measures 667 grams (1 lb. 8 oz.) (42% by Hadlock criteria). Biometry: BPD 5.93 cm 24 weeks, 2 days HC 22.27 cm 24 weeks, 2 days AC 20.06 cm 24 weeks, 5 days FL 4.13 cm 23 weeks, 3 days heart rate measures 152 beats per minute. Placenta is anteriorly located without evidence of pl acenta previa. Amniotic fluid appears adequate. Three vessel cord, cord insertion, kidneys, bladder, stomach, four chamber heart, lateral ventr icles and nose and lips are visualized without abnormalities. The posterior fossa and spine are not i filipe due to patient's body habitus and position. IMPRESSION: Single live IUP of 24 weeks, 1 day and ANGEL at 11/25/20. POS: OFF
[2020-08-07 02:28] LABS: SARS-CoV-2 PCR by NAA Not Detected (NotDetected)
[2020-08-07] MEDS: Sodium Chloride 0.9% 1,000 ML IV SCH (03:58)
[2020-08-07] MEDS: Acetaminophen 325 MG TAB PO PRN ×2 (05:25→14:30)
--- NOTE | 2020-08-07 06:31 | PDOC.OBAPN ---
FMR OB AP PN: Sub - Interval History Hospital Day: 2 Chief Complaint: flank pain Indentification: 25 yo @ 24.2 wga Interval History: Improved pain w/ urination. Tolerating PO. Pain improved w/ tylenol. FMR OB AP PN: Obj - Maternal Vital signs: BP: 107/55 HR: 85 RR: 16 Tmax: 98.0 Pox: 98% on RA - Urine output I&O: 08/05/20 08/06/20 08/07/20 06:59 06:59 06:59 Intake Total 2472 Output Total 2200 Balance 272 - Heart Tones Baseline: 130 (reactive) Variability: moderate Acceleration: present Deceleration: absent [place] contractions every: NONE FMR OB AP PN: Exam - Physical Exam General: NAD, awake, alert and oriented HEENT: normocephalic and atraumatic, no scleral icterus, grossly normal vision, grossly normal hearing Neck: trachea midline Heart: RRR, normal S1/S2, no murmurs/rubs/gallops General: CTAB, no respiratory distress Abdomen: soft, gravid Neurological: no focal deficit Skin: no rash Psychiatric: intact recent and remote memory, normal mood and affect FMR OB AP PN: Data - Labs Lab results: Laboratory Results - last 24 hr 08/06/20 08/06/20 08/06/20 10:02 10:10 10:10 WBC 18.1 H RBC 3.93 L Hgb 12.2 Hct 35.4 L MCV 89.9 MCH 30.9 MCHC 34.4 RDW 12.2 Plt Count 291 MPV 7.7 Neutrophils % 93.4 H Lymphocytes % 4.1 L Monocytes % 2.1 Eosinophils % 0.2 Basophils % 0.2 Neutrophils # 16.9 H Lymphocytes # 0.7 L Monocytes # 0.4 Eosinophils # 0.0 Basophils # 0.0 Sodium 137 Potassium 3.6 Chloride 104 Carbon Dioxide 21 L Anion Gap 16 BUN 7 Creatinine 0.62 Estimated GFR (MDRD) Greater than 90 Glucose 83 Lactic Acid Calcium 8.6 Total Bilirubin 0.5 AST 12 ALT 14 Alkaline Phosphatase 129 H Serum Total Protein 7.5 Albumin 3.9 Globulin 3.6 H Albumin/Globulin Ratio 1.1 L Lipase Urine Color Yellow Urine Clarity Extra Turbid A Urine pH 7.0 Ur Specific [place] 1.016 Urine Protein 70 A Urine Glucose (UA) Normal Urine Ketones 10 A Urine Blood 1+ A Urine Nitrite Negative Urine Bilirubin Negative Urine Urobilinogen 4.0 A Ur Leukocyte Esterase 500 A Urine RBC 11-20 A Urine WBC Greater than 50 A Ur Squamous Epith Cells 0-3 Ur Transition Epith Cell 0-3 A Urine Bacteria 4+ A SARS CoV-2 Rapid Source SARS-CoV-2 RNA ([place]) 08/06/20 08/06/20 08/06/20 10:28 16:30 Unknown WBC RBC Hgb Hct MCV MCH MCHC RDW Plt Count MPV Neutrophils % Lymphocytes % Monocytes % Eosinophils % Basophils % Neutrophils # Lymphocytes # Monocytes # Eosinophils # Basophils # Sodium Potassium Chloride Carbon Dioxide Anion Gap BUN Creatinine Estimated GFR (MDRD) Glucose Lactic Acid 0.9 Calcium Total Bilirubin AST ALT Alkaline Phosphatase Serum Total Protein Albumin Globulin Albumin/Globulin Ratio Lipase 17 Urine Color Urine Clarity Urine pH Ur Specific [place] Urine Protein Urine Glucose (UA) Urine Ketones Urine Blood Urine Nitrite Urine Bilirubin Urine Urobilinogen Ur Leukocyte Esterase Urine RBC Urine WBC Ur Squamous Epith Cells Ur Transition Epith Cell Urine Bacteria SARS CoV-2 Rapid Source Nasopharyngeal Swab SARS-CoV-2 RNA ([place]) Not Detected FMR OB AP PN: A/P Disposition: observation, antepartum. Monitor today and likely keep until tomorrow. Discussion: Date/Time: 08/07/20 0631 25 yo F at 24.1 wga by 6.2 wk sono Sepsis 2/2 pyelonephritis - ceftriaxone q24h - tylenol for pain, improving - WBC downtrending 24.1 wga without care - OB anatomy sono WNL, growth 42 %ile - NST reactive qSHIFT, no contractions - will f/u w/ clinic Anemia of - Hgb <10 on today's CBC, continue to monitor, consider iron outpatient Code: FULL IVF: SL VTE ppx: SCDs, ambulation GI ppx: none Abx: ceftriaxone This H&P was discussed with Dr. Hollis, who agrees with the above documentation and plan. Signature: Natacha Cardenas MD PGY2 Addendum - Attending - Attending Attestation Date/Time: 08/07/20 0736 I personally evaluated the patient and discussed the management with Dr. Cardenas. I agree with the History, Examination, Assessment and Plan documented above.
[2020-08-07 06:59] LABS: #Eosinphils 0.1 thou/uL (0.0-0.7); #Lymphocytes 1.5 thou/uL (1.20-3.40); #Monocytes 0.7 thou/uL (0.11-0.59); #Neutrophils 8.4 thou/uL (1.40-6.50); %Basophils 0.2 % (0.0-1.0); %Eosinophils 0.6 % (0.0-10.0); %Lymphocytes 14.1 % (21.0-51.0); %Monocytes 6.6 % (0.0-10.0); %Neutrophils 78.5 % (42.0-75.0); Hemoglobin 9.7 g/dL (12.0-16.0); Mean Corpuscular HGB CONC 33.7 g/dL (32.0-36.0); Mean Corpuscular Hemoglobin 30.8 pg (27.0-31.0); Mean Corpuscular Volume 91.4 fL (78.0-98.0); Mean Platelet Volume 7.5 fL (7.4-10.4); Platelet Count 255 thou/uL (130-400); RBC Distribution Width 12.4 % (11.5-14.5); Red Blood Cell (RBC) Count 3.16 mill/uL (4.20-5.40); White Blood Cell (WBC) Count 10.7 thou/uL (4.8-10.8)
[2020-08-07 07:14] LABS: Anion Gap 12 mmol/L (10-20); BUN (Urea Nitrogen) 6 mg/dL (7.0-18.7); Calc. Creatinine Clearance 198 mL/min (70-130); Calcium 7.7 mg/dL (7.8-10.44); Carbon Dioxide 23 mmol/L (22-29); Chloride 109 mmol/L (98-107); Glucose 78 mg/dL (70-105); Potassium 3.9 mmol/L (3.5-5.1); Sodium 140 mmol/L (136-145)
[2020-08-07] MEDS: Prenatal Vitamin 1 TAB PO SCH (08:53)
--- NOTE | 2020-08-07 10:33 | PDOC.BPN ---
- Brief Progress Note [employer] Lab Check: Blood Culture with NGTD Today WBC is normal Med: Rocephin
[2020-08-07] MEDS: cefTRIAXone\\ROCEPHIN 1 GM in Sodium Chloride 0.9% 100 ML IVPB SCH (14:26)
--- NOTE | 2020-08-07 15:59 | PDOC.BPN ---
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 Patient desires to go home. I informed her/them that we were awaiting urine culture. However, patient states the urine culture was not collected. We verified this with the lab. Patient states urine cath not done in ER "due to pain down there". The lab has the initial urine from ER there...we will convert THAT sample to urine culture now. Await urine culture results prior to DC
--- NOTE | 2020-08-08 05:59 | PDOC.BPN ---
- Brief Progress Note HD2 DX: Right Pyelo EGA: 24 weeks 3 days S. Patient states she is feeling better with no further burning on urination, no right flank pain. Aware of urine culture delay. Kg po well. O. VSS afebrile. All temps reviewed from last 24 hrs.Pulse 60-80s. BPs wnl and range from low 100s/60-80s Urine culture pending. Meds: IV Roecphin Assessment: Resolving pyelo clinically. Plan: We addressed culture importance and will await urine CX results. Likely home with macrobid if sensitive. Has [facility] follow up
[2020-08-08 06:19] LABS: #Eosinphils 0.1 thou/uL (0.0-0.7); #Lymphocytes 1.7 thou/uL (1.20-3.40); #Monocytes 0.5 thou/uL (0.11-0.59); #Neutrophils 6.9 thou/uL (1.40-6.50); %Basophils 0.4 % (0.0-1.0); %Eosinophils 0.9 % (0.0-10.0); %Lymphocytes 18.8 % (21.0-51.0); %Neutrophils 74.9 % (42.0-75.0); Hemoglobin 10.8 g/dL (12.0-16.0); Mean Corpuscular HGB CONC 34.4 g/dL (32.0-36.0); Mean Corpuscular Hemoglobin 31.7 pg (27.0-31.0); Mean Corpuscular Volume 92.2 fL (78.0-98.0); Mean Platelet Volume 7.5 fL (7.4-10.4); Platelet Count 271 thou/uL (130-400); RBC Distribution Width 12.4 % (11.5-14.5); Red Blood Cell (RBC) Count 3.39 mill/uL (4.20-5.40); White Blood Cell (WBC) Count 9.2 thou/uL (4.8-10.8)
[2020-08-08 06:50] LABS: Anion Gap 13 mmol/L (10-20); BUN (Urea Nitrogen) 6 mg/dL (7.0-18.7); Calc. Creatinine Clearance 205 mL/min (70-130); Calcium 8.1 mg/dL (7.8-10.44); Carbon Dioxide 22 mmol/L (22-29); Chloride 107 mmol/L (98-107); Glucose 81 mg/dL (70-105); Potassium 3.7 mmol/L (3.5-5.1); Sodium 138 mmol/L (136-145)
[2020-08-08] MEDS: Prenatal Vitamin 1 TAB PO SCH (08:55)
[2020-08-08] MEDS: cefTRIAXone\\ROCEPHIN 1 GM in Sodium Chloride 0.9% 100 ML IVPB SCH (12:24)
[2020-08-08] MEDS ORDERED: Bicitra 30 ML UDCUP PO PRN (19:55)
[2020-08-08] MEDS ORDERED: Famotidine/PF 20 mg/2ml Vial SLOW IVP PRN (19:55)
--- NOTE | 2020-08-08 19:59 | PDOC.BPN ---
- Brief Progress Note Encounter Date: 08/08/20 Encounter Time: 19:56 I performed an SVE to assess position (OP). Moderate amount of blood noted following exam with passage of small clot. Assessed with speculum and bleeding appears to be coming from in utero. Counseled and decision made to proceed with repeat LTCS. Miryam Nunez notified.
[2020-08-08] MEDS ORDERED: CEFAZOLIN 2 GM in Premix Bag 1 BAG IVPB SCH (20:00)
[2020-08-08] MEDS ORDERED: Azithromycin 500 MG in Sodium Chloride 0.9% 250 ML 250 ML IVPB SCH (20:00)
--- NOTE | 2020-08-09 07:16 | PDOC.BPN ---
- Brief Progress Note Encounter Date: 08/09/20 Encounter Time: 07:15 Sensitivities returned. Rx for Keflex 500mg BID and a second for 500mg QHS sent to pharmacy. Patient instructed to take her BID dosing for 10 days, then switch to the QHS dosing for suppression. Will d/c home today to follow up at [facility] [place].
[2020-08-09 07:28] LABS: #Eosinphils 0.1 thou/uL (0.0-0.7); #Lymphocytes 1.4 thou/uL (1.20-3.40); #Monocytes 0.4 thou/uL (0.11-0.59); #Neutrophils 7.2 thou/uL (1.40-6.50); %Basophils 0.1 % (0.0-1.0); %Eosinophils 0.6 % (0.0-10.0); %Lymphocytes 15.6 % (21.0-51.0); %Monocytes 4.8 % (0.0-10.0); %Neutrophils 78.9 % (42.0-75.0); Hemoglobin 11.4 g/dL (12.0-16.0); Mean Corpuscular HGB CONC 33.4 g/dL (32.0-36.0); Mean Corpuscular Hemoglobin 30.6 pg (27.0-31.0); Mean Corpuscular Volume 91.6 fL (78.0-98.0); Mean Platelet Volume 7.5 fL (7.4-10.4); Platelet Count 292 thou/uL (130-400); RBC Distribution Width 12.3 % (11.5-14.5); Red Blood Cell (RBC) Count 3.72 mill/uL (4.20-5.40); White Blood Cell (WBC) Count 9.2 thou/uL (4.8-10.8)
[2020-08-09 07:45] LABS: Anion Gap 15 mmol/L (10-20); BUN (Urea Nitrogen) 7 mg/dL (7.0-18.7); Calc. Creatinine Clearance 198 mL/min (70-130); Calcium 8.4 mg/dL (7.8-10.44); Carbon Dioxide 22 mmol/L (22-29); Chloride 105 mmol/L (98-107); Glucose 77 mg/dL (70-105); Potassium 3.9 mmol/L (3.5-5.1); Sodium 138 mmol/L (136-145)
[2020-08-09 07:52] VITALS: BP 105/58; TEMP 98.7
--- NOTE | 2020-08-09 11:41 | DIS ---
DATE OF ADMISSION: 08/06/2020 DATE OF DISCHARGE: 08/09/2020 DIAGNOSES: 1. Acute pyelonephritis. 2. A 24-week intrauterine . 3. No care. PROCEDURES: Ultrasound. HOSPITAL COURSE: The patient was admitted for acute pyelonephritis on 08/06/2020 with an elevated white count, fever, and flank pain as well as dirty urine. She was started on Rocephin and clinically improved. After sensitivities returned, she was meeting milestones for discharge and was sent home to follow up with clinic. DIET: Regular. ACTIVITIES: As tolerated. MEDICATIONS: Keflex 500 mg b.i.d. for 10 days followed by 500 mg daily for the remainder of the . FOLLOWUP: Follow up with clinic. INSTRUCTIONS: Call or return for worsening of symptoms, as well as labor precautions. Job ID: [id number]
--- NOTE | 2020-08-27 22:48 | EKG ---
Test Reason : Blood Pressure : / mmHG Vent. Rate : 103 BPM Atrial Rate : 103 BPM P-R Int : 136 ms QRS Dur : 102 ms QT Int : 366 ms P-R-T Axes : 043 068 020 degrees QTc Int : 479 ms Sinus tachycardia Otherwise normal ECG Confirmed by DHEERAJ CHADWICK, SHAE ([id number]), newspaper photo editor JUANJOSE GAO ([id number]) on 08/27/2020 10:47:51 PM Referred By: Confirmed By:SHAE ESQUEDA MD
== END 2020-08-09 08:50 | disposition home or self-care (01) | DRG 831 ==
LOC: ERS 09:53 → 3SE 11:00
PROVIDERS: ADMIT Obstetrics & Gynecology; ATTEND Obstetrics & Gynecology
DX: O75.3 Other infection during labor (principal); A41.9 Sepsis, unspecified organism; O23.02 Infections of kidney in pregnancy, second trimester; O99.344 Other mental disorders complicating childbirth; F41.9 Anxiety disorder, unspecified; F32.9 Major depressive disorder, single episode, unspecified; O99.012 Anemia complicating pregnancy, second trimester; D64.9 Anemia, unspecified; Z3A.24 24 weeks gestation of pregnancy; Z37.0 Single live birth
CPT/HCPCS: 36415; 59025; 76770; 76805; 80048; 80053; 81003; 81015; 83605; 83690; 85025; 87040; 87077; 87086; 87186; 87635; 93005; 96374; 96375; J0696; J2405; J3490; U0003; U0005